=== PATIENT | female | born 1995 | race African-American/Black ===

== ENCOUNTER 2016-10-26 08:57 | Emergency (ER) | payer MEDICAID, OTHER ==
[~2016-10-26] VITALS: Ht 165.1 cm; Wt 60.0 kg
[2016-10-26 08:58] VITALS: BP 108/58; PULSE 70; RESP 20; TEMP 97.8; O2SAT 100
[2016-10-26] MEDS ORDERED: SODIUM CHLOR 0.9% 1000 ML INJ 1,000 ML IV ONE (09:26)
[2016-10-26] MEDS ORDERED: SODIUM CHLORIDE 0.9% FLUSH 5 ML FLUSH IVF PRN (09:30)
--- NOTE | 2016-10-26 09:42 | PD ---
HPI Chief Complaint: Injury Time Seen by Provider: 09:42 Travel History International Travel<30 days: No Contact w/Intl Traveler<30days: No Traveled to known affect area: No History of Present Illness HPI 20-year-old Afro-[place]ian female presents the emergency department with complaints of a syncopal event yesterday, where she fell and injured her left foot which she is complaining of pain along the dorsal foot. She also has pain in the right dorsal wrist with bump present. Patient states that she had syncopal events frequently. She has a history of anemia which has not been checked in many months. She denies fever, chills, headache, head injury, neck pain, or other constitutional complaints. Patient denies . Patient is currently not on her period. She has no significant medical history other than history of MRSA. She has no known drug allergies. PFSH Past Medical History Hx Anticoagulant Therapy: No Anxiety: Yes Depression: Yes (hx ) Cancer: No Cardiovascular Problems: No Chemotherapy: No Cerebrovascular Accident: No Diabetes: No Diminished Hearing: No Endocrine: No Gastrointestinal Disorders: No GERD: Yes Genitourinary: No Headaches: No Heparin Induced Thrombocytopen: No Immune Disorder: No Implanted Vascular Access Dvce: No Musculoskeletal: No Neurologic: No Psychiatric: Yes (depression, suicidal attempt/ideation) Reproductive: No Respiratory: No Immunizations Current: Yes Seizures: No Sickle Cell Disease: No ?: Not LMP: 09/28/16 : 0 Para: 0 Past Surgical History Section: No Other Surgery: No Social History Alcohol Use: No Tobacco Use: No Substance Use: No Allergies-Medications (Allergen,Severity, Reaction): Coded Allergies: *MDRO Multi-Drug Resistant Organism (Verified Adverse Reaction, Unknown, ) ESBL+ Proteus in urine 04/2015. Reported Meds & Prescriptions Reported Meds & Active Scripts Active No Active Prescriptions or Reported Medications Review of Systems Except as stated in HPI: all other systems reviewed are Neg General / Constitutional: No: Fever Eyes: No: Visual changes HENT: No: Headaches Cardiovascular: No: Chest Pain or Discomfort Respiratory: No: Shortness of Breath Gastrointestinal: No: Abdominal Pain Genitourinary: No: Dysuria Musculoskeletal: No: Pain Skin: No Rash Neurologic: No: Weakness Psychiatric: No: Depression Endocrine: No: Polydipsia Hematologic/Lymphatic: No: Easy Bruising Physical Exam Narrative GENERAL: Patient is alert and oriented in no acute distress. SKIN: Warm and dry. Normal color. Normal turgor. HEAD: Atraumatic. Normocephalic. Nontender. EYES: Pupils equal and round. No scleral icterus. No injection or drainage. No significant pallor of the conjunctiva. ENT: No nasal bleeding or discharge. Mucous membranes pink and moist. Pharynx is normal. Airway is patent. TMs are clear. NECK: Trachea midline. No JVD. Supple and nontender. No palpable thyroid. CARDIOVASCULAR: Regular rate and rhythm. No murmurs gallops or rubs. RESPIRATORY: No accessory muscle use. Clear to auscultation. Breath sounds equal bilaterally. GASTROINTESTINAL: Abdomen soft, non-tender, nondistended. Hepatic and splenic margins not palpable. MUSCULOSKELETAL: Extremities without clubbing, cyanosis, or edema. No obvious deformities. Patient has no significant swelling of the left foot, but does have pain with palpation over the dorsal medial foot without obvious rapidness or deformity. Patient has what appears to be a ganglion cyst to the right dorsal wrist which is mobile and firm but not erythematous. She has good mounter sousaphones strength and range of motion of the wrist itself. NEUROLOGICAL: Awake and alert. No obvious cranial nerve deficits. Motor grossly within normal limits. Five out of 5 muscle strength in the arms and legs. Normal speech. PSYCHIATRIC: Appropriate mood and affect; insight and judgment normal. Data Data Last Documented VS Vital Signs Date Time Temp Pulse Resp B/P Pulse Ox O2 Delivery O2 Flow Rate FiO2 10/26/16 08:58 97.8 70 20 108/58 100 Room Air Orders Electrocardiogram (10/26/16 09:26) Ed Urine Pregnancytest Poc (10/26/16 09:26) Complete Blood Count With Diff (10/26/16 09:26) Comprehensive Metabolic Panel (10/26/16 09:26) Magnesium (Mg) (10/26/16:26) Urinalysis - C+S If Indicated (10/26/16:26) Ecg Monitoring (10/26/16:26) Iv Access Insert/Monitor (10/26/16 09:26) Oximetry (10/26/16 09:26) Sodium Chloride 0.9% Flush (Ns Flush) (10/26/16 09:30) Sodium Chlor 0.9% 1000 Ml Inj (Ns 1000 M (10/26/16 09:26) Foot, Complete ([id number]) (10/26/16 09:26) Labs Laboratory Tests Test 10/26/16 10/26/16 09:30 09:50 Urine Color YELLOW Urine Turbidity HAZY Urine pH 6.0 Urine Specific [place] 1.031 Urine Protein TRACE mg/dL Urine Glucose (UA) NEG mg/dL Urine Ketones NEG mg/dL Urine Occult Blood NEG Urine Nitrite NEG Urine Bilirubin NEG Urine Urobilinogen 4.0 MG/DL Urine Leukocyte Esterase NEG Urine RBC 1 /hpf Urine WBC 3 /hpf Urine Squamous Epithelial 16 /hpf Cells Urine Bacteria OCC /hpf Urine Mucus MOD /lpf Microscopic Urinalysis Comment CULT NOT INDICATED White Blood Count 3.5 TH/MM3 Red Blood Count 4.54 MIL/MM3 Hemoglobin 9.5 GM/DL Hematocrit 30.0 % Mean Corpuscular Volume 66.0 FL Mean Corpuscular Hemoglobin 20.8 PG Mean Corpuscular Hemoglobin 31.6 % Concent Red Cell Distribution Width 16.5 % Platelet Count 200 TH/MM3 Mean Platelet Volume 9.7 FL Neutrophils (%) (Auto) 54.2 % Lymphocytes (%) (Auto) 35.5 % Monocytes (%) (Auto) 6.2 % Eosinophils (%) (Auto) 3.5 % Basophils (%) (Auto) 0.6 % Neutrophils # (Auto) 1.9 TH/MM3 Lymphocytes # (Auto) 1.2 TH/MM3 Monocytes # (Auto) 0.2 TH/MM3 Eosinophils # (Auto) 0.1 TH/MM3 Basophils # (Auto) 0.0 TH/MM3 CBC Comment AUTO DIFF Differential Comment AUTO DIFF CONFIRMED Platelet Estimate NORMAL Platelet Morphology Comment NORMAL Ovalocytes 1+ Keratocytes OCC Sodium Level 142 MEQ/L Potassium Level 4.0 MEQ/L Chloride Level 111 MEQ/L Carbon Dioxide Level 26.7 MEQ/L Anion Gap 4 MEQ/L Blood Urea Nitrogen 9 MG/DL Creatinine 0.65 MG/DL Estimat Glomerular Filtration 142 ML/MIN Rate Random Glucose 83 MG/DL Calcium Level 8.6 MG/DL Magnesium Level 1.8 MG/DL Total Bilirubin 0.5 MG/DL Aspartate Amino Transf 12 U/L (AST/SGOT) Alanine Aminotransferase 17 U/L (ALT/SGPT) Alkaline Phosphatase 40 U/L Total Protein 7.3 GM/DL Albumin 3.7 GM/DL MDM Medical Decision Making Medical Screen Exam Complete: Yes Emergency Medical Condition: Yes Differential Diagnosis Syncope. Left foot sprain. Left foot contusion. Left foot fracture. Right wrist ganglion cyst. Narrative Course Patient is medically stable at time of exam. Labs for syncope are ordered including CBC, CMP, magnesium, urinalysis, urine . EKG is ordered. X-ray of the left foot is ordered. Patient is given 1000 mL of normal saline bolus. X-ray of the foot is unremarkable per radiologist. EKG is unremarkable. This is reviewed with Dr. Valdivia. Patient states she is taking iron, and is supposed to be taking it 3 times a day but hasn't been. Patient does not take vitamin B12. I feel the patient probably had a vasovagal syncopal episode yesterday due to her chronic microcytic anemia which is actually improved compared to previous labs. The patient is encouraged to take her iron as prescribed 3 times daily. I recommend that patient take vitamin B12 as well to help with absorption. Patient should follow with her primary care physician to ensure improvement in the next several weeks. The patient is felt to have a ganglion cyst on her right wrist which he should follow-up with a hand surgeon as discussed. Patient is to take Tylenol or ibuprofen for her left foot discomfort. Diagnosis Primary Impression: Syncope Qualified Code: R55 - Syncope, unspecified syncope type Additional Impressions: Sprain of left foot Qualified Code: S93.602A - Sprain of left foot, initial encounter Microcytic anemia Ganglion cyst of dorsum of right wrist Referrals: Yaritza Singleton MD Patient Instructions: Foot Sprain (ED), Ganglion Cysts (ED), General Instructions, Iron Deficiency Anemia (ED), Iron Rich Diet (DC) Med/Other Pt SpecificInfo: Prescription(s) given Scripts No Active Prescriptions or Reported Meds Disposition: 01 DISCHARGE HOME Condition: Stable Guillermo Ayala Oct 26, 2016 09:42
[2016-10-26 09:53] LABS: BACTERIA, URINE OCC /hpf; BLOOD, URINE NEG (NEG); COMMENT (UR) CULT NOT INDICATED; CULTURE IF INDICATED CULT NOT INDICATED; GLUCOSE,URINE NEG (NEG); KETONE, URINE NEG (NEG); MUCUS URINE MOD /lpf (OCC); NITRITE,URINE NEG (NEG); SQUAMOUS EPITHELIAL CELL URINE 16 /hpf (0-5); URINE COLOR YELLOW (YELLW/STRAW)
[2016-10-26 10:06] LABS: AUTOMATED NEUTROPHIL # 1.9 TH/MM3 (1.8-7.7); BASOPHIL % 0.6 % (0.0-2.0); EOSINOPHIL # 0.1 TH/MM3 (0-0.4); EOSINOPHIL % 3.5 % (0.0-4.0); HEMO FLAGS AUTO DIFF; LYMPH % 35.5 % (9.0-44.0); LYMPHOCYTE # 1.2 TH/MM3 (1.0-4.8); MEAN CORPUSCULAR HEMOGLOBIN 20.8 PG (27.0-34.0); MEAN CORPUSCULAR HGB CONC 31.6 % (32.0-36.0); MONO % 6.2 % (0.0-8.0); NEUT % 54.2 % (16.0-70.0); PLATELET COUNT 200 TH/MM3 (150-450); RED BLOOD COUNT 4.54 MIL/MM3 (4.00-5.30); RED CELL DISTRIBUTION WIDTH 16.5 % (11.6-17.2); WHITE BLOOD COUNT 3.5 TH/MM3 (4.0-11.0)
[2016-10-26 10:22] LABS: ALT (GPT) 17 U/L (9-42); ANION GAP 4 MEQ/L (5-15); AST (GOT) 12 U/L (16-38); BICARBONATE 26.7 MEQ/L (21.0-32.0); BLOOD UREA NITROGEN 9 MG/DL (7-18); CHLORIDE 111 MEQ/L (98-107); GLOMERULAR FILTRATION RATE 142 ML/MIN (>89); MAGNESIUM 1.8 MG/DL (1.5-2.5); SODIUM (NA) 142 MEQ/L (136-145)
[2016-10-26 10:24] LABS: ALKALINE PHOSPHATASE 40 U/L (45-117); TOTAL BILIRUBIN ADULT 0.5 MG/DL (0.2-1.0)
[2016-10-26 10:45] LABS: KERATOCYTES OCC (NORMAL); OVALOCYTES 1+ (NORMAL); PLATELET ESTIMATE SMEAR NORMAL (NORMAL); PLATELET MORPHOLOGY NORMAL (NORMAL); SCAN/DIFF AUTO DIFF CONFIRMED
[2016-10-26] MEDS ORDERED: IBUP-232 PO (10:59)
[2016-10-26] MEDS ORDERED: B12-1CHW CHEW (10:59)
--- NOTE | 2016-10-26 11:03 | RADRPT ---
EXAM DATE/TIME: 10/26/2016 09:50 [facility] COMPARISON: No previous studies available for comparison. INDICATIONS : Fell three days ago, pain anterior left foot, slight swelling at distal end of metatarsals MEDICAL HISTORY : None. SURGICAL HISTORY : None. ENCOUNTER: Initial ACUITY: 3 days PAIN SCORE: 7/10 LOCATION: Left foot FINDINGS: 3 views of the left foot. Bone alignment within normal limits. No evidence of fracture. Bone mineral ization within normal limits. No evidence of joint narrowing. CONCLUSION: No evidence of fracture. Luisito Tamayo MD on October 26, 2016 at 11:00 Board Certified Radiologist. This report was verified electronically.
--- NOTE | 2016-10-26 13:51 | EKG ---
Date Performed: 10/26/2016 Time Performed: 10:02:09 PTAGE: 20 years EKG: Sinus rhythm NORMAL ECG PREVIOUS TRACING : 08/08/2016 19.39 Since previous tracing, no significant change noted DOCTOR: Jeanine Wallis Interpretating Date/Time 10/26/2016 13:45:13
[2017-03-07] MEDS ORDERED: ERGO1CAP30 PO (09:32)
== END 2016-10-26 11:55 | disposition home or self-care (01) ==
LOC: NEPB 08:57
DX: R55 Syncope and collapse (principal); S93.602A Unspecified sprain of left foot, initial encounter; D50.9 Iron deficiency anemia, unspecified; M67.431 Ganglion, right wrist; Z86.2 Personal history of diseases of the blood and blood-forming organs and certain disorders involving the immune mechanism; Z86.59 Personal history of other mental and behavioral disorders; Z87.19 Personal history of other diseases of the digestive system; W19.XXXA Unspecified fall, initial encounter
CPT/HCPCS: 73630; 80053; 81001; 83735; 84703; 85025; 93005; 96360; 96361; 99284; J7030

== ENCOUNTER 2016-12-23 09:03 | Emergency (ER) | payer MEDICAID, OTHER ==
[~2016-12-23] VITALS: Ht 165.1 cm; Wt 65.0 kg
[~2016-12-23 09:03] MED LIST: B12-1CHW CHEW; IBUP-232 PO
[2016-12-23 09:05] VITALS: BP 107/51; PULSE 87; RESP 15; TEMP 97.8; O2SAT 98
--- NOTE | 2016-12-23 09:31 | PD ---
HPI Chief Complaint: Injury Time Seen by Provider: 09:27 Travel History International Travel<30 days: No Contact w/Intl Traveler<30days: No Traveled to known affect area: No History of Present Illness HPI Patient is a 21-year-old female presenting to emergency department for evaluation of left wrist pain. Patient states she fell twice last week and onto her outstretched hand. She states her wrist is sore, she denies any numbness or tingling. She denies any weakness in her wrist or hand. She has been utilizing a wrist brace with no relief of her symptoms. Patient has not taken anything to alleviate the pain. She reports her pain is an 8 out of 10. She also reports a ganglion cyst to her right anterior wrist. PFSH Past Medical History Hx Anticoagulant Therapy: No Anxiety: Yes Depression: Yes (hx ) Cancer: No Cardiovascular Problems: No Chemotherapy: No Cerebrovascular Accident: No Diabetes: No Diminished Hearing: No Endocrine: No Gastrointestinal Disorders: No GERD: Yes Genitourinary: No Headaches: No Heparin Induced Thrombocytopen: No Immune Disorder: No Implanted Vascular Access Dvce: No Musculoskeletal: No Neurologic: No Psychiatric: Yes (depression, suicidal attempt/ideation) Reproductive: No Respiratory: No Immunizations Current: Yes Seizures: No Sickle Cell Disease: No ?: Not : 0 Para: 0 Past Surgical History Section: No Other Surgery: No Social History Alcohol Use: No Tobacco Use: No Substance Use: No Allergies-Medications (Allergen,Severity, Reaction): Coded Allergies: *MDRO Multi-Drug Resistant Organism (Verified Adverse Reaction, Unknown, ) ESBL+ Proteus in urine 04/2015. Reported Meds & Prescriptions Reported Meds & Active Scripts Active Reported Iron (Ferrous Sulfate) 325 Mg Tab 325 Mg PO DAILY Take Review of Systems Except as stated in HPI: all other systems reviewed are Neg Musculoskeletal: Positive: Myalgias, Arthralgias Physical Exam Narrative GENERAL: Well-nourished, well-developed patient. SKIN: Focused skin assessment warm/dry. HEAD: Normocephalic. EYES: No scleral icterus. No injection or drainage. NECK: Supple, trachea midline. No JVD or lymphadenopathy. CARDIOVASCULAR: Regular rate and rhythm without murmurs, gallops, or rubs. RESPIRATORY: Breath sounds equal bilaterally. No accessory muscle use. GASTROINTESTINAL: Abdomen soft, non-tender, nondistended. MUSCULOSKELETAL: No cyanosis, or edema. No obvious deformities noted. Full range of motion in left wrist and hand. Patient is neurovascularly intact. Ganglion cyst noted to the right anterior wrist BACK: Nontender without obvious deformity. No CVA tenderness. Data Data Last Documented VS Vital Signs Date Time Temp Pulse Resp B/P Pulse Ox O2 Delivery O2 Flow Rate FiO2 12/23/16 09:05 97.8 87 15 107/51 98 Orders Wrist, Complete ([id number]) (12/23/16 ) [facility] Medical Decision Making Medical Screen Exam Complete: Yes Emergency Medical Condition: Yes Interpretation(s) Vital Signs Date Time Temp Pulse Resp B/P Pulse Ox O2 Delivery O2 Flow Rate FiO2 12/23/16 09:05 97.8 87 15 107/51 98 Differential Diagnosis Sprain versus strain versus fracture versus other Narrative Course Patient is a 21-year-old female presenting to emergency department for evaluation of left wrist pain after falling onto an outstretched hand last week and. Patient is neurovascularly intact, so obvious deformities noted. Also presents with complaint of a ganglion cyst to her right wrist. Patient was advised she would need to follow-up with a hand surgeon for evaluation of the ganglion cyst. Imaging ordered pending of the left wrist. Imaging of the left wrist negative for acute fracture area bones are normal alignment. Patient is encouraged to alternate heat and ice the affected area, take medications as directed, wrist race for support. She is encouraged to follow-up with her primary doctor return to emergency department for any new or worsening symptoms. Patient verbalized understanding of instructions. Patient is stable for discharge Diagnosis Primary Impression: Wrist pain Qualified Code: M25.532 - Left wrist pain Referrals: Primary Care Physician Patient Instructions: General Instructions, Wrist Injury (ED) Additional Instructions: Follow-up with her primary doctor Alternate heat and ice to the affected area, continue range of motion exercises , wrist splint for support Return to emergency department for any new or worsening symptoms Take medications as directed Med/Other Pt SpecificInfo: Prescription(s) given Scripts Ibuprofen 800 Mg [id number] Mg PO Q6HR PRN (PAIN) #40 TAB Ref 0 Prov:Marybel Isidro 12/23/16 Disposition: 01 DISCHARGE HOME Condition: Stable Marybel Isidro Dec 23, 2016 09:31
[2016-12-23] MEDS ORDERED: FERR1TAB36 PO (09:39)
--- NOTE | 2016-12-23 09:49 | RADRPT ---
EXAM DATE/TIME: 12/23/2016 09:45 [facility] COMPARISON: No previous studies available for comparison. INDICATIONS : Fall Saturday, pain entire wrist radiating into metacarpals. MEDICAL HISTORY : None. SURGICAL HISTORY : None. ENCOUNTER: Initial ACUITY: 3 days PAIN SCORE: 10/10 LOCATION: Left wrist. FINDINGS: Three view examination of the left wrist demonstrates no soft tissue swelling, dislocation, or fractu re. The carpal bones are in normal alignment. The joint spaces are maintained. Bony mineralization is normal. CONCLUSION: Normal examination for a patient of this age. Edgardo Tristan MD FACR on December 23, 2016 at 9:46 Board Certified Radiologist. This report was verified electronically.
[2016-12-23] MEDS ORDERED: IBUP800T23 PO (09:53)
[2017-03-07] MEDS ORDERED: ERGO1CAP30 PO (09:32)
== END 2016-12-23 10:01 | disposition home or self-care (01) ==
LOC: NETRI 09:03
DX: M25.532 Pain in left wrist (principal); W19.XXXA Unspecified fall, initial encounter; Y93.9 Activity, unspecified; Y92.9 Unspecified place or not applicable; Y99.9 Unspecified external cause status
CPT/HCPCS: 73110; 99283

== ENCOUNTER 2017-01-20 18:29 | Emergency (ER) | payer MEDICAID, OTHER ==
[~2017-01-20] VITALS: Ht 165.1 cm; Wt 75.0 kg
[~2017-01-20 18:29] MED LIST changes: -B12-1CHW CHEW; +FERR1TAB36 PO; -IBUP-232 PO; +IBUP800T23 PO
[2017-01-20 18:30] VITALS: BP 115/56; PULSE 87; RESP 17; TEMP 99; O2SAT 98
--- NOTE | 2017-01-20 18:35 | PD ---
Physical Exam Date Seen by Provider: Jan 20, 2017 Time Seen by Provider: 18:33 Narrative 21 y/o female with complaints of possible allergic reaction to Ramen Noodles Last night. Patient has had swelling and sores to her lips. No Sore throat or tongue swelling. No wheezing or SOB. V/S Stable Awaiting bed placement. (Guillermo Ayala) Data Data Last Documented VS Vital Signs Date Time Temp Pulse Resp B/P Pulse Ox O2 Delivery O2 Flow Rate FiO2 01/20/17 18:30 99.0 87 17 115/56 98 (Quinten Grossman MD) [facility] Medical Record Reviewed: Yes Supervised Visit with ELLEN: Yes (Guillermo Ayala) Supervised Visit with ELLEN: Yes (Quinten Grossman MD) Diagnosis Primary Impression: Oral herpes Additional Instruction: Need to follow for the health department for testing for other STDs. No kissing no sharing drinks until the lesions are completely healed. Med/Other Pt SpecificInfo: Prescription(s) given (Quinten Grossman MD) Scripts Acyclovir 800 Mg [id number] Mg PO 5 TIMES A DAY 7 Days Ref 0 Prov:Quinten Grossman MD 01/20/17 Disposition: 01 DISCHARGE HOME Condition: Stable Guillermo Ayala Jan 20, 2017 18:35 Quinten Grossman MD Jan 20, 2017 18:47
[2017-01-20] MEDS ORDERED: ACYC800T PO (18:47)
--- NOTE | 2017-01-20 19:46 | PD ---
HPI Chief Complaint: Allergic/Adverse Reaction Time Seen by Provider: 18:35 Travel History International Travel<30 days: No Contact w/Intl Traveler<30days: No Traveled to known affect area: No History of Present Illness HPI Patient is a 21-year-old female who presents emergency department after having noodles she eats she thought she started having an allergic reaction. She states her lips and swollen and she noticed some lesions on the inside of her lip. She states this never happened to her before and she has no allergies. She denies any fevers denies any shortness of breath denies any sensation that her throat closing off. PFSH Past Medical History Hx Anticoagulant Therapy: No Anemia: Yes Weight (Kg): 3 Anxiety: Yes Depression: Yes (hx ) Cancer: No Cardiovascular Problems: No Chemotherapy: No Cerebrovascular Accident: No Diabetes: No Diminished Hearing: No Endocrine: No Gastrointestinal Disorders: No GERD: Yes Genitourinary: No Headaches: No Heparin Induced Thrombocytopen: No Immune Disorder: No Implanted Vascular Access Dvce: No Musculoskeletal: No Neurologic: No Psychiatric: Yes (depression, suicidal attempt/ideation) Reproductive: No Respiratory: No Immunizations Current: Yes Seizures: No Sickle Cell Disease: No Tetanus Vaccination: > 5 Years Influenza Vaccination: No ?: Not LMP: 01/20/17 : 0 Para: 0 Miscarriage: 0 : 0 Past Surgical History Surgical History: No Previous Surgery Section: No Other Surgery: No Social History Alcohol Use: No Tobacco Use: No Substance Use: No Allergies-Medications (Allergen,Severity, Reaction): Coded Allergies: *MDRO Multi-Drug Resistant Organism (Verified Adverse Reaction, Unknown, ) ESBL+ Proteus in urine 04/2015. Reported Meds & Prescriptions Reported Meds & Active Scripts Active Acyclovir 800 Mg Tab 800 Mg PO 5 TIMES A DAY 7 Days Review of Systems Except as stated in HPI: all other systems reviewed are Neg Physical Exam Narrative GENERAL: Well-nourished, well-developed patient. SKIN: Focused skin assessment warm/dry. HEAD: Normocephalic. EYES: No scleral icterus. No injection or drainage. ENT: There are several vesicular lesions over a bed of erythema on the mucosal surface of her upper lip. These are consistent with herpes infection. Airway is widely patent, there is no soft tissue edema of her face. NECK: Supple, trachea midline. No JVD or lymphadenopathy. CARDIOVASCULAR: Regular rate and rhythm without murmurs, gallops, or rubs. RESPIRATORY: Breath sounds equal bilaterally. No accessory muscle use. GASTROINTESTINAL: Abdomen soft, non-tender, nondistended. MUSCULOSKELETAL: No cyanosis, or edema. BACK: Nontender without obvious deformity. No CVA tenderness. Data Data Last Documented VS Vital Signs Date Time Temp Pulse Resp B/P Pulse Ox O2 Delivery O2 Flow Rate FiO2 01/20/17 18:30 99.0 87 17 115/56 98 MDM Medical Decision Making Medical Screen Exam Complete: Yes Emergency Medical Condition: Yes Differential Diagnosis Oral herpes, allergic reaction unlikely, anaphylaxis excluded clinically. Narrative Course Patient was roomed in the emergency department, she appears well in no apparent distress. Discussed with her the diagnosis and recommended had trial of acyclovir and follow-up with the health department for further testing for possible other STDs. She is stable for discharge at this time. Diagnosis Primary Impression: Oral herpes Additional Instructions: Need to follow for the health department for testing for other STDs. No kissing no sharing drinks until the lesions are completely healed. Scripts Acyclovir 800 Mg [id number] Mg PO 5 TIMES A DAY 7 Days Ref 0 Prov:Quinten Grossman MD 01/20/17 Disposition: 01 DISCHARGE HOME Condition: Stable Quinten Grossman MD Jan 20, 2017 19:46
[2017-03-07] MEDS ORDERED: ERGO1CAP30 PO (09:32)
== END 2017-01-20 20:12 | disposition home or self-care (01) ==
LOC: NEPD 18:29
DX: B00.2 Herpesviral gingivostomatitis and pharyngotonsillitis (principal); D64.9 Anemia, unspecified
CPT/HCPCS: 99283

== ENCOUNTER 2017-03-24 15:08 | Emergency (ER) | payer OTHER ==
[~2017-03-24] VITALS: Ht 165.1 cm; Wt 60.0 kg
[~2017-03-24 15:08] MED LIST changes: +ERGO1CAP30 PO; -FERR1TAB36 PO; -IBUP800T23 PO
[2017-03-24 15:11] VITALS: BP 118/58; PULSE 87; RESP 20; TEMP 98.6; O2SAT 100
[2017-03-24] MEDS ORDERED: FLUT50SP EACH NARE (16:22)
[2017-03-24] MEDS ORDERED: AUGM875T3 PO (16:22)
[2017-03-24] MEDS ORDERED: IBUP800T23 PO (16:22)
--- NOTE | 2017-03-24 16:22 | PD ---
HPI Chief Complaint: Headache Time Seen by Provider: 16:22 Travel History International Travel<30 days: No Contact w/Intl Traveler<30days: No Traveled to known affect area: No History of Present Illness HPI Patient is a 21-year-old female presenting to the emergency department with 1 month of frontal headaches. Patient states that that are worse when laying down and in the morning. She reports nasal congestion, heavy, tired eyes. She states she feels dizzy occasionally but has had no cough, nausea, vomiting, photophobia, weakness. Patient reports a history of anemia, anxiety, depression , hypotension. She reports compliance with iron therapy twice daily. She has no other complaints at this time. PFSH Past Medical History Hx Anticoagulant Therapy: No Anemia: Yes Anxiety: Yes Depression: Yes (hx ) Cancer: No Cardiovascular Problems: No Chemotherapy: No Cerebrovascular Accident: No Diabetes: No Diminished Hearing: No Endocrine: No Gastrointestinal Disorders: No GERD: Yes Genitourinary: No Headaches: No Heparin Induced Thrombocytopen: No Immune Disorder: No Implanted Vascular Access Dvce: No Musculoskeletal: No Neurologic: No Reproductive: No Respiratory: No Immunizations Current: Yes Seizures: No Sickle Cell Disease: No ?: Not LMP: FEBRUARY 2017 : 0 Para: 0 Miscarriage: 0 : 0 Past Surgical History Surgical History: No Previous Surgery Section: No Other Surgery: No Social History Alcohol Use: No Tobacco Use: No Substance Use: No Allergies-Medications (Allergen,Severity, Reaction): Coded Allergies: No Known Allergies (Unverified , 02/21/17) Reported Meds & Prescriptions Reported Meds & Active Scripts Active Ibuprofen 800 Mg Tab 800 Mg PO Q6HR PRN Fluticasone Nasal Jones 50 Mcg/Act Naspr 100 Mcg EACH NARE BID 50 mcg/spray Augmentin (Amoxicillin-Clavulanate) 875-125 Mg Tab 1 Tab PO BID 10 Days Ergocalciferol 50,000 Unit Cap 50,000 Units PO Q7D Review of Systems Except as stated in HPI: all other systems reviewed are Neg Eyes: Positive: Blurred Vision (chronic in nature) HENT: Positive: Headaches, Rhinitis, Congestion, No: Lightheadedness, Neck Stiffness, Neck Pain Cardiovascular: No: Chest Pain or Discomfort Respiratory: No: Shortness of Breath Gastrointestinal: No: Nausea, Abdominal Pain Musculoskeletal: No: Myalgias Neurologic: Positive: Dizziness, Headache (frontal), No: Weakness Physical Exam Narrative GENERAL: Well-developed, well-nourished, alert female. Resting comfortably in no acute distress. SKIN: Focused skin assessment warm/dry. HEAD: Atraumatic. Normocephalic. EYES: Pupils equal and round. No scleral icterus. No injection or drainage. Extraocular movements are intact. ENT: No nasal bleeding or discharge. Mucous membranes pink and moist. Nasal turbinates appear swollen, clear drainage noted. Airway is patent. NECK: Trachea midline. No JVD. CARDIOVASCULAR: Regular rate and rhythm. No murmur appreciated. RESPIRATORY: No accessory muscle use. Clear to auscultation. Breath sounds equal bilaterally. GASTROINTESTINAL: Abdomen soft, non-tender, nondistended. Hepatic and splenic margins not palpable. MUSCULOSKELETAL: No obvious deformities. No clubbing. No cyanosis. No edema. NEUROLOGICAL: Awake and alert. No obvious cranial nerve deficits. Motor grossly within normal limits. Normal speech. PSYCHIATRIC: Appropriate mood and affect; insight and judgment normal. Data Data Last Documented VS Vital Signs Date Time Temp Pulse Resp B/P Pulse Ox O2 Delivery O2 Flow Rate FiO2 03/24/17 16:28 Room Air 03/24/17 15:11 98.6 87 20 118/58 100 [facility] Medical Decision Making Medical Screen Exam Complete: Yes Emergency Medical Condition: Yes Medical Record Reviewed: Yes Interpretation(s) Vital Signs Date Time Temp Pulse Resp B/P Pulse Ox O2 Delivery O2 Flow Rate FiO2 03/24/17 16:28 Room Air 03/24/17 15:11 98.6 87 20 118/58 100 Room Air Differential Diagnosis Migraine versus cluster headache versus tension type headache versus sinusitis versus other Narrative Course Patient is a 21-year-old female presenting with 1 month of headaches that are frontal in nature, worse when laying down and upon awakening in the morning. Patient was seen and evaluated by her primary care provider 2 weeks ago for the same issue, she was instructed take acetaminophen or ibuprofen for the pain. She was also advised to have her eyes checked she has not done. Physical exam is most consistent with sinusitis. Patient was encouraged to obtain over-the- counter Sudafed or similar age and use as directed. She was given prescription for antibiotics as well as fluticasone nasal spray. She is encouraged follow- up with her primary care provider this week. She is encouraged to return to emergency department for any new or worsening symptoms. Patient verbalized understanding of instructions. Patient is stable for discharge. Diagnosis Primary Impression: Acute sinusitis Qualified Code: J01.90 - Acute sinusitis, recurrence not specified, unspecified location Referrals: Primary Care Physician Patient Instructions: General Instructions, Sinusitis (ED) Additional Instructions: Follow-up with her primary doctor Obtain [id number] Sudafed or similar medication and use as directed and as needed Take medications as directed Return to emergency department for any new or worsening symptoms Med/Other Pt SpecificInfo: Prescription(s) given Scripts Ibuprofen 800 Mg [id number] Mg PO Q6HR PRN (PAIN) #40 TAB Ref 0 Prov:Marybel Isidro 03/24/17 Fluticasone Nasal Jones 50 Mcg/Act [id number] Mcg EACH NARE BID #1 BOTTLE Ref 0 50 mcg/spray Prov:Marybel Isidro 03/24/17 Amoxicillin-Clavulanate (Augmentin)875-125 Mg Tab1 Tab PO BID 10 Days Ref 0 Prov:Marybel Isidro 03/24/17 Disposition: 01 DISCHARGE HOME Condition: Stable Marybel Isidro Mar 24, 2017 16:22
[2017-03-27] MEDS ORDERED: FERR200T PO (09:49)
== END 2017-03-24 16:55 | disposition home or self-care (01) ==
LOC: NEPD 15:08
DX: J01.90 Acute sinusitis, unspecified (principal)
CPT/HCPCS: 99284

== ENCOUNTER 2017-05-29 16:14 | Emergency (ER) | payer OTHER ==
[~2017-05-29] VITALS: Ht 165.1 cm; Wt 71.0 kg
[~2017-05-29 16:14] MED LIST changes: +AMOX500T PO; +CLAR10CA3 PO; +CLAR500T PO; +COLA100C PO; -ERGO1CAP30 PO; +FERR200T PO; +FLUT50SP EACH NARE; +IBUP800T23 PO; +PANT40TA3 PO; +SACC1CAP3 PO
[2017-05-29 16:15] VITALS: BP 116/58; PULSE 85; RESP 20; TEMP 99; O2SAT 97
[2017-05-29] MEDS ORDERED: ALUMINUM/MAGNESIUM/SIMETH 30 ML CUP PO ONE (17:45)
[2017-05-29] MEDS ORDERED: FAMOTIDINE 20 MG/2 ML VIAL IV PUSH ONE (17:45)
[2017-05-29] MEDS ORDERED: LIDOCAINE VISCOUS 2% SOLN 15 ML UDC PO ONE (17:45)
--- NOTE | 2017-05-29 17:47 | PD ---
HPI Chief Complaint: Abdominal Pain Time Seen by Provider: 17:35 Travel History International Travel<30 days: No Contact w/Intl Traveler<30days: No Traveled to known affect area: No History of Present Illness HPI This patient was examined in the presence of female nurse. 21-year-old female who reports a history of GERD presents for evaluation of "heartburn." She reports that yesterday evening she ate B [employer] and 2 hours later she developed a burning sensation in the epigastrium/left upper quadrant that radiates into the upper chest. She tried using some Tums but the symptoms persisted which prompted evaluation. She reports that she has had a similar pain intermittently for the past year but this time is worse than usual. She reports that she was diagnosed with GERD last year and prescribed some type of medication but she never got it filled because she does not feel that it was necessary. She denies shortness of breath, cough or congestion, flank pain, vaginal bleeding or discharge, nausea or vomiting, dysuria. Her last menstrual period was April 09 but she does not that she spotted lightly about a month ago. She has no other complaints at this time. PFSH Past Medical History Hx Anticoagulant Therapy: No Anemia: Yes Anxiety: Yes Depression: Yes (hx ) Cancer: No Cardiovascular Problems: No Chemotherapy: No Cerebrovascular Accident: No Diabetes: No Diminished Hearing: No Endocrine: No Gastrointestinal Disorders: No GERD: Yes Genitourinary: No Headaches: No Heparin Induced Thrombocytopen: No Immune Disorder: No Implanted Vascular Access Dvce: No Musculoskeletal: No Neurologic: No Reproductive: No Respiratory: No Immunizations Current: Yes Seizures: No Sickle Cell Disease: No ?: Unknown LMP: 04/09/17 : 0 Para: 0 Miscarriage: 0 : 0 Past Surgical History Section: No Other Surgery: No Social History Alcohol Use: No Tobacco Use: No Substance Use: No Allergies-Medications (Allergen,Severity, Reaction): Coded Allergies: No Known Allergies (Unverified , 05/13/17) Reported Meds & Prescriptions Reported Meds & Active Scripts Active Pantoprazole (Pantoprazole Sodium) 40 Mg Tab 40 Mg PO BID Review of Systems Except as stated in HPI: all other systems reviewed are Neg Physical Exam Narrative GENERAL: Well-developed well-nourished female in no acute distress SKIN: Warm and dry. HEAD: Atraumatic. Normocephalic. EYES: Pupils equal and round. No scleral icterus. No injection or drainage. ENT: No nasal bleeding or discharge. Mucous membranes pink and moist. NECK: Trachea midline. No JVD. CARDIOVASCULAR: Regular rate and rhythm. No murmur appreciated. RESPIRATORY: No accessory muscle use. Clear to auscultation. Breath sounds equal bilaterally. GASTROINTESTINAL: Abdomen soft, mild left upper quadrant/epigastric tenderness without guarding. Negative Marquez's. Mild suprapubic tenderness. MUSCULOSKELETAL: No obvious deformities. No edema. No CVA tenderness. NEUROLOGICAL: Awake and alert. No obvious cranial nerve deficits. Motor grossly within normal limits. Normal speech. PSYCHIATRIC: Appropriate mood and affect; insight and judgment normal. Data Data Last Documented VS Vital Signs Date Time Temp Pulse Resp B/P (MAP) Pulse Ox O2 Delivery O2 Flow Rate FiO2 05/29/17 16:15 99.0 85 20 116/58 (77) 97 Room Air Orders Orders Complete Blood Count With Diff (05/29/17 17:42) Comprehensive Metabolic Panel (05/29/17 17:42) Lipase (05/29/17 17:42) Urinalysis - C+S If Indicated (05/29/17 17:42) Iv Access Insert/Monitor (05/29/17 17:42) Electrocardiogram (05/29/17 17:42) Chest, Single Ap (05/29/17 17:42) Famotidine Inj (Pepcid Inj) (05/29/17 17:45) Al-Mag Hy-Si 40-40-4 Mg/Ml Liq (Mag-Al P (05/29/17 17:45) Lidocaine 2% Viscous (Xylocaine 2% Visco (05/29/17 17:45) Ed Urine Pregnancytest Poc (05/29/17 17:42) Labs Laboratory Tests Test 05/29/17 17:50 05/29/17 18:20 White Blood Count 6.0 TH/MM3 Red Blood Count 4.51 MIL/MM3 Hemoglobin 9.4 GM/DL Hematocrit 30.9 % Mean Corpuscular Volume 68.4 FL Mean Corpuscular Hemoglobin 20.9 PG Mean Corpuscular Hemoglobin Concent 30.5 % Red Cell Distribution Width 15.4 % Platelet Count 226 TH/MM3 Mean Platelet Volume 9.6 FL Neutrophils (%) (Auto) 58.7 % Lymphocytes (%) (Auto) 30.8 % Monocytes (%) (Auto) 8.3 % Eosinophils (%) (Auto) 1.5 % Basophils (%) (Auto) 0.7 % Neutrophils # (Auto) 3.5 TH/MM3 Lymphocytes # (Auto) 1.8 TH/MM3 Monocytes # (Auto) 0.5 TH/MM3 Eosinophils # (Auto) 0.1 TH/MM3 Basophils # (Auto) 0.0 TH/MM3 CBC Comment DIFF FINAL Differential Comment Blood Urea Nitrogen 11 MG/DL Creatinine 0.81 MG/DL Random Glucose 78 MG/DL Total Protein 8.4 GM/DL Albumin 3.7 GM/DL Calcium Level 8.9 MG/DL Alkaline Phosphatase 50 U/L Aspartate Amino Transf (AST/SGOT) 27 U/L Alanine Aminotransferase (ALT/SGPT) 18 U/L Total Bilirubin 0.4 MG/DL Sodium Level 135 MEQ/L Potassium Level 5.4 MEQ/L Chloride Level 107 MEQ/L Carbon Dioxide Level 23.9 MEQ/L Anion Gap 4 MEQ/L Estimat Glomerular Filtration Rate 109 ML/MIN Lipase 119 U/L Urine Color YELLOW Urine Turbidity HAZY Urine pH 6.5 Urine Specific [place] 1.027 Urine Protein NEG mg/dL Urine Glucose (UA) NEG mg/dL Urine Ketones NEG mg/dL Urine Occult Blood NEG Urine Nitrite NEG Urine Bilirubin NEG Urine Urobilinogen 2.0 MG/DL Urine Leukocyte Esterase TRACE Urine RBC LESS THAN 1 /hpf Urine WBC 2 /hpf Urine Squamous Epithelial Cells 4 /hpf Urine Bacteria RARE /hpf Urine Mucus FEW /lpf Microscopic Urinalysis Comment CULT NOT INDICATED MDM Medical Decision Making Medical Screen Exam Complete: Yes Emergency Medical Condition: Yes Medical Record Reviewed: Yes Differential Diagnosis Gastritis, peptic ulcer disease, gastroesophageal reflux, esophagitis, pancreatitis, biliary colic, perforation Narrative Course 21-year-old female with history of GERD presents with one-day history of worsening burning sensation in the epigastrium/left upper quadrant that radiates into the chest, unrelieved with Tums. On examination she has mild tenderness to palpation in the epigastrium and left upper quadrant without guarding, generally benign abdominal examination. Her symptoms are certainly suspicious for gastritis/peptic ulcer disease. Plan is for basic lab work, EKG , chest x-ray. The patient will be given GI cocktail, Pepcid. Her lab work reveals chronic anemia. Potassium is 5.4 but the specimen is hemolyzed and there is no clinical reason to suspect hyperkalemia in this otherwise healthy 21-year-old female. She felt immediately improvement of her symptoms after the administration of GI cocktail. She'll be discharged with prescription for Protonix, recommend follow-up with primary care physician, consider outpatient endoscopy if symptoms worsen. Diagnosis Primary Impression: Gastritis Qualified Codes: K29.70 - Gastritis, unspecified, without bleeding Additional Instructions: Medication as prescribed. Follow-up with primary care physician. Return for any emergent medical conditions. Med/Other Pt SpecificInfo: Prescription(s) given Scripts Pantoprazole (Pantoprazole) 40 Mg Tab 40 MG PO BID for Reflux, #30 TAB 0 Refills Prov: Yissel Palacios MD 05/29/17 Disposition: 01 DISCHARGE HOME Condition: Stable Orville Almendarez May 29, 2017 17:47
--- NOTE | 2017-05-29 18:16 | RADRPT ---
EXAM DATE/TIME: 05/29/2017 17:44 [facility] COMPARISON: CHEST PA & LAT, March 22, 2016, 18:51. CHEST SINGLE AP, August 08, 2016, 20:01. INDICATIONS : Patient complains of chest pain and upper abdomen pain. MEDICAL HISTORY : None. SURGICAL HISTORY : None. ENCOUNTER: Initial ACUITY: 1 day PAIN SCORE: 10/10 LOCATION: chest FINDINGS: A single view of the chest demonstrates the lungs to be symmetrically aerated without evidence of mas s, infiltrate or effusion. The cardiomediastinal contours are unremarkable. Osseous structures are intact. CONCLUSION: No acute disease. Andre Carbajal MD on May 29, 2017 at 18:14 Board Certified Radiologist. This report was verified electronically.
[2017-05-29 18:42] LABS: AUTOMATED NEUTROPHIL # 3.5 TH/MM3 (1.8-7.7); BASOPHIL % 0.7 % (0.0-2.0); EOSINOPHIL # 0.1 TH/MM3 (0-0.4); EOSINOPHIL % 1.5 % (0.0-4.0); HEMATOCRIT 30.9 % (35.0-46.0); HEMO FLAGS DIFF FINAL; LYMPH % 30.8 % (9.0-44.0); LYMPHOCYTE # 1.8 TH/MM3 (1.0-4.8); MEAN CELL VOLUME 68.4 FL (80.0-100.0); MEAN CORPUSCULAR HEMOGLOBIN 20.9 PG (27.0-34.0); MEAN CORPUSCULAR HGB CONC 30.5 % (32.0-36.0); MONO % 8.3 % (0.0-8.0); NEUT % 58.7 % (16.0-70.0); PLATELET COUNT 226 TH/MM3 (150-450); RED BLOOD COUNT 4.51 MIL/MM3 (4.00-5.30); RED CELL DISTRIBUTION WIDTH 15.4 % (11.6-17.2)
[2017-05-29 18:43] LABS: BACTERIA, URINE RARE /hpf; BLOOD, URINE NEG (NEG); COMMENT (UR) CULT NOT INDICATED; CULTURE IF INDICATED CULT NOT INDICATED; GLUCOSE,URINE NEG (NEG); KETONE, URINE NEG (NEG); MUCUS URINE FEW /lpf (OCC); NITRITE,URINE NEG (NEG); PH, URINE 6.5 (5.0-8.5); SQUAMOUS EPITHELIAL CELL URINE 4 /hpf (0-5); URINE COLOR YELLOW (YELLW/STRAW)
[2017-05-29 19:02] LABS: AST (GOT) 27 U/L (16-38); BICARBONATE 23.9 MEQ/L (21.0-32.0); BLOOD UREA NITROGEN 11 MG/DL (7-18); GLOMERULAR FILTRATION RATE 109 ML/MIN (>89)
[2017-05-29 19:54] LABS: ALKALINE PHOSPHATASE 50 U/L (45-117); ALT (GPT) 18 U/L (9-42); ANION GAP 4 MEQ/L (5-15); CHLORIDE 107 MEQ/L (98-107); SODIUM (NA) 135 MEQ/L (136-145); TOTAL BILIRUBIN ADULT 0.4 MG/DL (0.2-1.0)
[2017-05-29 19:58] LABS: POTASSIUM 5.4 MEQ/L (3.5-5.1)
[2017-05-29] MEDS ORDERED: PANT40TA3 PO (20:01)
--- NOTE | 2017-05-30 12:52 | EKG ---
Date Performed: 05/29/2017 Time Performed: 19:00:33 PTAGE: 21 years EKG: Sinus rhythm WITH OCCASIONAL SUPRAVENTRICULAR PREMATURE COMPLEXES BORDERLINE ECG PREVIOUS TRACING : 10/26/2016 10.02 DOCTOR: Luís De La O Interpretating Date/Time 05/30/2017 12:47:27
== END 2017-05-29 20:15 | disposition home or self-care (01) ==
LOC: NEPD 16:14
DX: K29.70 Gastritis, unspecified, without bleeding (principal); K21.9 Gastro-esophageal reflux disease without esophagitis; D64.9 Anemia, unspecified; F41.9 Anxiety disorder, unspecified; F32.9 Major depressive disorder, single episode, unspecified
CPT/HCPCS: 71010; 80053; 81001; 83690; 84703; 85025; 93005; 96374

== ENCOUNTER 2017-06-14 16:33 | Emergency (ER) | payer OTHER ==
[~2017-06-14] VITALS: Ht 165.1 cm; Wt 73.5 kg
[~2017-06-14 16:33] MED LIST changes: -AMOX500T PO; -CLAR10CA3 PO; -CLAR500T PO; -COLA100C PO; -FERR200T PO; -FLUT50SP EACH NARE; -IBUP800T23 PO; -SACC1CAP3 PO
[2017-06-14 16:35] VITALS: BP 118/57; PULSE 94; RESP 13; TEMP 98.5; O2SAT 98
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
[2017-06-14] MEDS ORDERED: FERR325C PO (17:52)
[2017-06-14] MEDS ORDERED: IBUP-1129 PO (18:34)
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
[2017-06-18] MEDS ORDERED: TRAM50 PO (22:44)
== END 2017-06-14 18:56 | disposition home or self-care (01) ==
LOC: NEPD 16:33
DX: M54.2 Cervicalgia (principal); V49.59XA Passenger injured in collision with other motor vehicles in traffic accident, initial encounter; Y92.481 Parking lot as the place of occurrence of the external cause
CPT/HCPCS: 99282

== ENCOUNTER 2017-06-18 18:54 | Emergency (ER) | payer OTHER ==
[~2017-06-18] VITALS: Ht 165.1 cm; Wt 75.0 kg
[~2017-06-18 18:54] MED LIST changes: +FERR325C PO; +IBUP-1129 PO; -PANT40TA3 PO
[2017-06-18 18:55] VITALS: BP 106/70; PULSE 86; RESP 16; TEMP 98.5; O2SAT 98
--- NOTE | 2017-06-18 20:50 | PD ---
HPI Chief Complaint: Abdominal Pain Time Seen by Provider: 20:41 Travel History International Travel<30 days: No Contact w/Intl Traveler<30days: No Traveled to known affect area: No History of Present Illness HPI patient states her last period was mid march this year, doesn't know if , states that she has taken multiple otc tests which are negative...states c/o lower abdominal pain for last 2 weeks, pressure, non rad, 4/10, no uti sx, no vag bleeding, no vag discharge, no fever. all: nkda pcp: john delacruz denies pshx pmhx sig for anxiety PFSH Past Medical History Hx Anticoagulant Therapy: No Anemia: Yes Anxiety: Yes Depression: Yes (hx ) Cancer: No Cardiovascular Problems: No Chemotherapy: No Cerebrovascular Accident: No Diabetes: No Diminished Hearing: No Endocrine: No Gastrointestinal Disorders: No GERD: Yes Genitourinary: No Headaches: No Heparin Induced Thrombocytopen: No Immune Disorder: No Implanted Vascular Access Dvce: No Musculoskeletal: No Neurologic: No Psychiatric: Yes (depression, suicidal attempt/ideation) Reproductive: No Respiratory: No Immunizations Current: Yes Seizures: No Sickle Cell Disease: No ?: Unknown LMP: 7-18-17 : 0 Para: 0 Miscarriage: 0 : 0 Past Surgical History Section: No Other Surgery: No Social History Alcohol Use: No Tobacco Use: No Substance Use: No Allergies-Medications (Allergen,Severity, Reaction): Coded Allergies: No Known Allergies (Unverified , 05/13/17) Reported Meds & Prescriptions Reported Meds & Active Scripts Active Ultram (Tramadol HCl) 50 Mg Tab 50 Mg PO Q6H PRN Motrin Ib (Ibuprofen) 200 Mg Tablet 400 Mg PO Q6HR PRN Reported Iron (Ferrous Sulfate) 325 Mg Cap 325 Mg PO DAILY Review of Systems Except as stated in HPI: all other systems reviewed are Neg Gastrointestinal: Positive: Abdominal Pain (suprapubic) Physical Exam Narrative GENERAL: SKIN: Warm and dry. HEAD: Atraumatic. Normocephalic. EYES: Pupils equal and round. No scleral icterus. No injection or drainage. ENT: No nasal bleeding or discharge. Mucous membranes pink and moist. NECK: Trachea midline. No JVD. CARDIOVASCULAR: Regular rate and rhythm. RESPIRATORY: No accessory muscle use. Clear to auscultation. Breath sounds equal bilaterally. GASTROINTESTINAL: Abdomen soft, non-tender, nondistended. MUSCULOSKELETAL: Extremities without clubbing, cyanosis, or edema. No obvious deformities. NEUROLOGICAL: Awake and alert. No obvious cranial nerve deficits. Motor grossly within normal limits. Five out of 5 muscle strength in the arms and legs. Normal speech. PSYCHIATRIC: Appropriate mood and affect; insight and judgment normal. Data Data Last Documented VS Vital Signs Date Time Temp Pulse Resp B/P (MAP) Pulse Ox O2 Delivery O2 Flow Rate FiO2 06/19/17 01:59 06/18/17 18:55 98.5 86 16 98 Orders Orders Urinalysis - C+S If Indicated (06/18/17 20:41) Ed Urine Pregnancytest Poc (06/18/17 20:41) Beta Hcg (Quant/Titer) (06/18/17 20:50) Complete Blood Count With Diff (06/18/17 20:50) Comprehensive Metabolic Panel (06/18/17 20:50) Lipase (06/18/17 20:50) Ct Abd/Pel W/O Iv Contrast (06/18/17 20:50) Iv Access Insert/Monitor (06/18/17 20:50) Ecg Monitoring (06/18/17 20:50) Oximetry (06/18/17 20:50) NPO (06/18/17 20:50) Sodium Chloride 0.9% Flush (Ns Flush) (06/18/17 21:00) Labs Laboratory Tests Test 06/18/17 21:16 06/18/17 21:30 Urine Color YELLOW Urine Turbidity HAZY Urine pH 7.0 Urine Specific [place] 1.030 Urine Protein TRACE mg/dL Urine Glucose (UA) NEG mg/dL Urine Ketones NEG mg/dL Urine Occult Blood NEG Urine Nitrite NEG Urine Bilirubin NEG Urine Urobilinogen 4.0 MG/DL Urine Leukocyte Esterase NEG Urine RBC 1 /hpf Urine WBC 4 /hpf Urine Squamous Epithelial Cells 8 /hpf Urine Mucus MANY /lpf Microscopic Urinalysis Comment CULT NOT INDICATED White Blood Count 6.4 TH/MM3 Red Blood Count 4.83 MIL/MM3 Hemoglobin 9.7 GM/DL Hematocrit 32.5 % Mean Corpuscular Volume 67.4 FL Mean Corpuscular Hemoglobin 20.1 PG Mean Corpuscular Hemoglobin Concent 29.8 % Red Cell Distribution Width 15.4 % Platelet Count 272 TH/MM3 Mean Platelet Volume 9.7 FL Neutrophils (%) (Auto) 57.7 % Lymphocytes (%) (Auto) 33.9 % Monocytes (%) (Auto) 6.4 % Eosinophils (%) (Auto) 1.5 % Basophils (%) (Auto) 0.5 % Neutrophils # (Auto) 3.7 TH/MM3 Lymphocytes # (Auto) 2.2 TH/MM3 Monocytes # (Auto) 0.4 TH/MM3 Eosinophils # (Auto) 0.1 TH/MM3 Basophils # (Auto) 0.0 TH/MM3 CBC Comment DIFF FINAL Differential Comment Blood Urea Nitrogen 10 MG/DL Creatinine 0.65 MG/DL Random Glucose 87 MG/DL Total Protein 8.7 GM/DL Albumin 4.3 GM/DL Calcium Level 9.4 MG/DL Alkaline Phosphatase 60 U/L Aspartate Amino Transf (AST/SGOT) 16 U/L Alanine Aminotransferase (ALT/SGPT) 19 U/L Total Bilirubin 0.3 MG/DL Sodium Level 139 MEQ/L Potassium Level 3.9 MEQ/L Chloride Level 105 MEQ/L Carbon Dioxide Level 25.0 MEQ/L Anion Gap 9 MEQ/L Estimat Glomerular Filtration Rate 141 ML/MIN Lipase 119 U/L Human Chorionic Gonadotropin, Quant LESS THAN 1 MIU/ML MDM Medical Decision Making Medical Screen Exam Complete: Yes Emergency Medical Condition: Yes Medical Record Reviewed: Yes Differential Diagnosis uti v pregn related v ectopic preg v colitis v pancreatitis Narrative Course NEG , NO E/O PANCREATITIS OR COLITIS PER CT, HOWEVER DID DISCOVER E/O OVARIAN CYST AND MESENTERIC ADENITIS. PATIENT IS STABLE AND AWARE OF FINDINGS WILL D/C HOME Diagnosis Primary Impression: MESENTERIC ADENITIS Additional Impression: INCIDENTAL RIGHT OVARIAN CYST Referrals: [facility] FOR FURTHER CARE Patient Instructions: General Instructions, Mesenteric Adenitis (ED), Ovarian Cyst (DC) Scripts Tramadol (Ultram) 50 Mg Tab 50 MG PO Q6H Y for PAIN, #20 TAB 0 Refills Prov: Attila Montiel MD 06/18/17 Disposition: 01 DISCHARGE HOME Condition: Stable Attila Montiel MD Jun 18, 2017 20:50
[2017-06-18] MEDS ORDERED: SODIUM CHLORIDE 0.9% FLUSH 10 ML FLUSH IV FLUSH PRN (21:00)
[2017-06-18 21:30] LABS: BLOOD, URINE NEG (NEG); COMMENT (UR) CULT NOT INDICATED; CULTURE IF INDICATED CULT NOT INDICATED; GLUCOSE,URINE NEG (NEG); KETONE, URINE NEG (NEG); MUCUS URINE MANY /lpf (OCC); NITRITE,URINE NEG (NEG); SQUAMOUS EPITHELIAL CELL URINE 8 /hpf (0-5); URINE COLOR YELLOW (YELLW/STRAW)
[2017-06-18 21:58] LABS: AUTOMATED NEUTROPHIL # 3.7 TH/MM3 (1.8-7.7); BASOPHIL % 0.5 % (0.0-2.0); EOSINOPHIL # 0.1 TH/MM3 (0-0.4); EOSINOPHIL % 1.5 % (0.0-4.0); HEMATOCRIT 32.5 % (35.0-46.0); HEMO FLAGS DIFF FINAL; LYMPH % 33.9 % (9.0-44.0); LYMPHOCYTE # 2.2 TH/MM3 (1.0-4.8); MEAN CELL VOLUME 67.4 FL (80.0-100.0); MEAN CORPUSCULAR HEMOGLOBIN 20.1 PG (27.0-34.0); MONO % 6.4 % (0.0-8.0); NEUT % 57.7 % (16.0-70.0); PLATELET COUNT 272 TH/MM3 (150-450); RED BLOOD COUNT 4.83 MIL/MM3 (4.00-5.30); RED CELL DISTRIBUTION WIDTH 15.4 % (11.6-17.2); WHITE BLOOD COUNT 6.4 TH/MM3 (4.0-11.0)
--- NOTE | 2017-06-18 21:59 | RADRPT ---
EXAM DATE/TIME: 06/18/2017 21:40 [place] COMPARISON: No previous studies available for comparison. INDICATIONS : Lower abdominal pain for 2 weeks. ORAL CONTRAST: No oral contrast ingested. RADIATION DOSE: 7.72 CTDIvol (mGy) MEDICAL HISTORY : Hypertension. Gastroesophageal reflux disease. SURGICAL HISTORY : Hysterectomy. ENCOUNTER: Initial ACUITY: 2 weeks PAIN SCALE: 4/10 LOCATION: lower quadrant abdomen TECHNIQUE: Volumetric scanning of the abdomen and pelvis was performed. Using automated exposure control and ad justment of the mA and/or kV according to patient size, radiation dose was kept as low as reasonably achievable to obtain optimal diagnostic quality images. DICOM format image data is available electro nically for review and comparison. FINDINGS: LOWER LUNGS: The visualized lower lungs are clear. LIVER: Homogeneous density without lesion. There is no dilation of the biliary tree. No calcified [place] es. SPLEEN: Normal size without lesion. PANCREAS: Within normal limits. KIDNEYS: Normal in size and shape. There is no mass, stone, or hydronephrosis. ADRENAL GLANDS: Within normal limits. VASCULAR: There is no aortic aneurysm. BOWEL/MESENTERY: The stomach, small bowel, and colon demonstrate no acute abnormality. There is no free intraperitone al air or fluid. The appendix is normal. Several mesenteric lymph nodes measuring up to 1 cm in great est short axis dimension are seen in the right lower quadrant. ABDOMINAL WALL: Within normal limits. RETROPERITONEUM: There is no lymphadenopathy. BLADDER: No wall thickening or mass. REPRODUCTIVE: There is a 16mm simple appearing cyst of the right ovary. No free fluid. INGUINAL: There is no lymphadenopathy or hernia. MUSCULOSKELETAL: Within normal limits for patient age. CONCLUSION: 1. Upper limits of normal to slightly enlarged right lower quadrant lymph nodes. Mesenteric adenitis would be in the differential. No obstruction or inflammatory changes are seen of the gastrointestinal tract. The appendix is normal. 2. Small, simple appearing cyst of the right ovary. No free fluid. Andre Jefferson MD on June 18, 2017 at 21:54 Board Certified Radiologist. This report was verified electronically.
[2017-06-18 22:10] LABS: MEAN CORPUSCULAR HGB CONC 29.8 % (32.0-36.0)
[2017-06-18 22:11] LABS: ANION GAP 9 MEQ/L (5-15); AST (GOT) 16 U/L (16-38); BLOOD UREA NITROGEN 10 MG/DL (7-18); CHLORIDE 105 MEQ/L (98-107); GLOMERULAR FILTRATION RATE 141 ML/MIN (>89); POTASSIUM 3.9 MEQ/L (3.5-5.1); SODIUM (NA) 139 MEQ/L (136-145)
[2017-06-18 22:12] LABS: ALT (GPT) 19 U/L (9-42)
[2017-06-18 22:16] LABS: ALKALINE PHOSPHATASE 60 U/L (45-117); BETA HCG QUANT LESS THAN 1 MIU/ML (0-5); TOTAL BILIRUBIN ADULT 0.3 MG/DL (0.2-1.0)
[2017-06-18] MEDS ORDERED: ULTR50TA5 PO (22:44)
== END 2017-06-19 01:58 | disposition home or self-care (01) ==
LOC: NEPC 18:54
DX: I88.0 Nonspecific mesenteric lymphadenitis (principal); N83.201 Unspecified ovarian cyst, right side
CPT/HCPCS: 74176; 80053; 81001; 83690; 84702; 84703; 85025

== ENCOUNTER 2018-02-11 11:33 | Emergency (ER) | payer SELFPAY ==
[~2018-02-11] VITALS: Ht 165.1 cm; Wt 73.0 kg
[~2018-02-11 11:33] MED LIST changes: -FERR325C PO; +FLUT50SP EACH NARE; +TRAM50 PO
[2018-02-11 12:05] VITALS: BP 105/67; PULSE 79; RESP 17; TEMP 98.9; O2SAT 100
[2018-02-11 13:26] LABS: AUTOMATED NEUTROPHIL # 3.1 TH/MM3 (1.8-7.7); BASOPHIL % 0.3 % (0.0-2.0); EOSINOPHIL # 0.1 TH/MM3 (0-0.4); HEMATOCRIT 31.7 % (35.0-46.0); HEMOGLOBIN 9.6 GM/DL (11.6-15.3); LYMPH % 32.5 % (9.0-44.0); LYMPHOCYTE # 1.7 TH/MM3 (1.0-4.8); MEAN CELL VOLUME 65.2 FL (80.0-100.0); MEAN CORPUSCULAR HEMOGLOBIN 19.9 PG (27.0-34.0); MEAN CORPUSCULAR HGB CONC 30.4 % (32.0-36.0); MEAN PLATELET VOLUME 9.3 FL (7.0-11.0); MONO % 7.3 % (0.0-8.0); MONOCYTE # 0.4 TH/MM3 (0-0.9); NEUT % 57.9 % (16.0-70.0); PLATELET COUNT 286 TH/MM3 (150-450); RED BLOOD COUNT 4.86 MIL/MM3 (4.00-5.30); RED CELL DISTRIBUTION WIDTH 18.1 % (11.6-17.2); WHITE BLOOD COUNT 5.4 TH/MM3 (4.0-11.0)
[2018-02-11 13:28] LABS: GLUCOSE,URINE NEG (NEG); URINE COLOR YELLOW (YELLW/STRAW)
[2018-02-11 13:29] LABS: BILIRUBIN, URINE NEGATIVE (NEG); BLOOD, URINE NEG (NEG); KETONE, URINE NEG (NEG); MUCUS URINE MANY /lpf (OCC); NITRITE,URINE NEG (NEG); URINE LEUKOCYTE ESTERASE TRACE (NEG)
[2018-02-11 13:30] LABS: SQUAMOUS EPITHELIAL CELL URINE 7 /hpf (0-5)
[2018-02-11 13:51] LABS: ALBUMIN 3.9 GM/DL (3.4-5.0); ALT (GPT) 16 U/L (10-53); AST (GOT) 13 U/L (15-37); BICARBONATE 24.6 MEQ/L (21.0-32.0); BLOOD UREA NITROGEN 10 MG/DL (7-18); CALCIUM 8.8 MG/DL (8.5-10.1); CHLORIDE 107 MEQ/L (98-107); CREATININE 0.72 MG/DL (0.50-1.00); GLOMERULAR FILTRATION RATE 124 ML/MIN (>89); GLUCOSE,RANDOM 91 MG/DL (74-106); SODIUM (NA) 140 MEQ/L (136-145)
[2018-02-11 13:53] LABS: ALKALINE PHOSPHATASE 57 U/L (45-117); TOTAL BILIRUBIN ADULT 0.5 MG/DL (0.2-1.0); TOTAL PROTEIN 8.3 GM/DL (6.4-8.2)
--- NOTE | 2018-02-11 14:04 | PD ---
HPI Chief Complaint: Abdominal Pain Time Seen by Provider: 13:12 Travel History International Travel<30 days: No Contact w/Intl Traveler<30days: No Traveled to known affect area: No History of Present Illness HPI 22-year-old female presents emergency department with one half weeks of abdominal crampiness. She denies fever, chills, nausea, or vomiting. She has decreased appetite however. Patient denies dysuria. She denies . Although she is not sure if she could be. Last menstrual period was 19 January. Patient states history of constipation. She states she is moving her bowels but less than normal. Patient denies vaginal discharge. PFSH Past Medical History Hx Anticoagulant Therapy: No Anemia: Yes Weight (Kg): 3 Anxiety: Yes Depression: Yes (hx ) Cancer: No Cardiovascular Problems: No Chemotherapy: No Cerebrovascular Accident: No Diabetes: No Diminished Hearing: No Endocrine: No Gastrointestinal Disorders: No GERD: Yes Genitourinary: No Headaches: No Heparin Induced Thrombocytopen: No Immune Disorder: No Implanted Vascular Access Dvce: No Musculoskeletal: No Neurologic: No Psychiatric: Yes (depression, suicidal attempt/ideation) Reproductive: No Respiratory: No Immunizations Current: Yes Seizures: No Sickle Cell Disease: No ?: Not : 0 Para: 0 Miscarriage: 0 : 0 Past Surgical History Section: No Other Surgery: No Social History Alcohol Use: No Tobacco Use: No Substance Use: No Allergies-Medications (Allergen,Severity, Reaction): Coded Allergies: No Known Allergies (Verified Allergy, Unknown, 10/16/17) Reported Meds & Prescriptions Reported Meds & Active Scripts Active Fluticasone Nasal [place] 50 Mcg/Act Naspr 50 Mcg EACH NARE BID 50 mcg/spray Ultram (Tramadol HCl) 50 Mg Tab 50 Mg PO Q6H PRN Motrin Ib (Ibuprofen) 200 Mg Tablet 400 Mg PO Q6HR PRN Physical Exam Narrative GENERAL: Patient appears in mild distress. SKIN: Warm and dry. Normal color. Normal turgor. No rash. HEAD: Atraumatic. Normocephalic. EYES: Pupils equal and round. No scleral icterus. No injection or drainage. ENT: No nasal bleeding or discharge. Mucous membranes pink and moist. NECK: Trachea midline. Supple and nontender. CARDIOVASCULAR: Regular rate and rhythm. RESPIRATORY: No accessory muscle use. Clear to auscultation. Breath sounds equal bilaterally. GASTROINTESTINAL: Abdomen soft, mildly nonspecifically tender in the lower abdomen, nondistended. No point tenderness or rebound. No masses. No CVA tenderness. Hepatic and splenic margins not palpable. MUSCULOSKELETAL: Extremities without clubbing, cyanosis, or edema. No obvious deformities. NEUROLOGICAL: Awake and alert. No obvious cranial nerve deficits. Motor grossly within normal limits. Five out of 5 muscle strength in the arms and legs. Normal speech. PSYCHIATRIC: Appropriate mood and affect; insight and judgment normal. Data Data Last Documented VS Vital Signs Date Time Temp Pulse Resp B/P (MAP) Pulse Ox O2 Delivery O2 Flow Rate FiO2 02/11/18 12:05 98.9 79 17 105/67 (80) 100 Orders Orders Complete Blood Count With Diff (02/11/18 12:07) Comprehensive Metabolic Panel (02/11/18 12:07) Urinalysis - C+S If Indicated (02/11/18 12:07) Ed Urine Pregnancytest Poc (02/11/18 12:07) Abdomen, Flat & Upright (02/11/18 ) Labs Laboratory Tests Test 02/11/18 12:15 02/11/18 13:05 Urine Color YELLOW Urine Turbidity HAZY Urine pH 5.0 Urine Specific [place] 1.029 Urine Protein NEG mg/dL Urine Glucose (UA) NEG mg/dL Urine Ketones NEG mg/dL Urine Occult Blood NEG Urine Nitrite NEG Urine Bilirubin NEGATIVE Urine Urobilinogen 2.0 MG/DL Urine Leukocyte Esterase TRACE Urine RBC LESS THAN 1.0 /hpf Urine WBC 5 /hpf Urine Squamous Epithelial Cells 7 /hpf Urine Mucus MANY /lpf Microscopic Urinalysis Comment CULT NOT INDICATED White Blood Count 5.4 TH/MM3 Red Blood Count 4.86 MIL/MM3 Hemoglobin 9.6 GM/DL Hematocrit 31.7 % Mean Corpuscular Volume 65.2 FL Mean Corpuscular Hemoglobin 19.9 PG Mean Corpuscular Hemoglobin Concent 30.4 % Red Cell Distribution Width 18.1 % Platelet Count 286 TH/MM3 Mean Platelet Volume 9.3 FL Neutrophils (%) (Auto) 57.9 % Lymphocytes (%) (Auto) 32.5 % Monocytes (%) (Auto) 7.3 % Eosinophils (%) (Auto) 2.0 % Basophils (%) (Auto) 0.3 % Neutrophils # (Auto) 3.1 TH/MM3 Lymphocytes # (Auto) 1.7 TH/MM3 Monocytes # (Auto) 0.4 TH/MM3 Eosinophils # (Auto) 0.1 TH/MM3 Basophils # (Auto) 0.0 TH/MM3 CBC Comment DIFF FINAL Differential Comment Blood Urea Nitrogen 10 MG/DL Creatinine 0.72 MG/DL Random Glucose 91 MG/DL Total Protein 8.3 GM/DL Albumin 3.9 GM/DL Calcium Level 8.8 MG/DL Alkaline Phosphatase 57 U/L Aspartate Amino Transf (AST/SGOT) 13 U/L Alanine Aminotransferase (ALT/SGPT) 16 U/L Total Bilirubin 0.5 MG/DL Sodium Level 140 MEQ/L Potassium Level 3.5 MEQ/L Chloride Level 107 MEQ/L Carbon Dioxide Level 24.6 MEQ/L Anion Gap 8 MEQ/L Estimat Glomerular Filtration Rate 124 ML/MIN MDM Medical Decision Making Medical Screen Exam Complete: Yes Emergency Medical Condition: Yes Differential Diagnosis Abdominal pain. Constipation. [place]. . UTI. Narrative Course Patient is medically stable time exam per Abdominal exam is fairly unremarkable. Urinalysis is unremarkable. CBC shows hemoglobin 9.6 and hematocrit of 31.7 which is typical for patient with microcytic anemia.. Chemistries are unremarkable. KUB and upright abdominal x-rays ordered. X-ray shows: FINDINGS: Supine and upright views of the abdomen were performed. The abdominal bowel gas pattern is normal. No air-fluid levels are seen. There is a moderate amount of stool in the colon. No abnormal masses, calcifications, or organomegaly is seen. The visualized lower lungs are clear. No evidence of free intraperitoneal gas. The osseous structures are unremarkable. Patient is felt stable for discharge with a diagnosis of constipation. Patient is given a prescription for MiraLAX which she should use daily. Patient can take Tylenol and ibuprofen as needed. Patient should follow with primary care physician as needed. Diagnosis Primary Impression: Abdominal pain Qualified Codes: R10.30 - Lower abdominal pain, unspecified Additional Impression: Constipation Qualified Codes: K59.00 - Constipation, unspecified Referrals: Primary Care Physician Patient Instructions: Abdominal Pain (ED), Constipation (ED), General Instructions Additional Instructions: Urinalysis is unremarkable. CBC shows hemoglobin 9.6 and hematocrit of 31.7 which is typical for patient with microcytic anemia.. Chemistries are unremarkable. KUB and upright abdominal x-rays ordered. X-ray shows: FINDINGS: Supine and upright views of the abdomen were performed. The abdominal bowel gas pattern is normal. No air-fluid levels are seen. There is a moderate amount of stool in the colon. No abnormal masses, calcifications, or organomegaly is seen. The visualized lower lungs are clear. No evidence of free intraperitoneal gas. The osseous structures are unremarkable. Patient is felt stable for discharge with a diagnosis of constipation. Patient is given a prescription for MiraLAX which she should use daily. Patient can take Tylenol and ibuprofen as needed. Patient should follow with primary care physician as needed. Med/Other Pt SpecificInfo: Prescription(s) given Disposition: DISCHARGE HOME Condition: Stable Guillermo Ayala February 11, 2018 14:04
--- NOTE | 2018-02-11 14:40 | RADRPT ---
EXAM DATE: 02/11/2018 2:36 PM EDT AGE/SEX: 22 years / Female INDICATIONS: Abdominal and pelvic pain, no known injury. CLINICAL DATA: This is the patient's initial encounter. Patient reports that signs and symptoms have been present for 2 weeks and indicates a pain score of 7/10. MEDICAL/SURGICAL HISTORY: None. None. COMPARISON: No prior [facility] exams available for comparison. FINDINGS: Supine and upright views of the abdomen were performed. The abdominal bowel gas pattern is normal. No air-fluid levels are seen. There is a moderate amount of stool in the colon. No abnormal masses, carol cifications, or organomegaly is seen. The visualized lower lungs are clear. No evidence of free intra peritoneal gas. The osseous structures are unremarkable. CONCLUSION: Moderate amount of stool in the colon. Benign appearing abdomen. Electronically signed by: Damian Mcnair MD 02/11/2018 2:39 PM EDT
[2018-02-11] MEDS ORDERED: MIRA3350 PO (15:19)
== END 2018-02-11 15:55 | disposition home or self-care (01) ==
LOC: NEPD 11:33
DX: R10.30 Lower abdominal pain, unspecified (principal); K59.00 Constipation, unspecified
CPT/HCPCS: 74019; 80053; 81001; 84703; 85025; 99283

== ENCOUNTER 2018-03-10 15:28 | Emergency (ER) | payer SELFPAY ==
[~2018-03-10] VITALS: Ht 165.1 cm; Wt 70.0 kg
[~2018-03-10 15:28] MED LIST changes: +MIRA3350 PO
[2018-03-10 15:30] VITALS: BP 114/56; PULSE 78; RESP 16; TEMP 98; O2SAT 100
--- NOTE | 2018-03-10 16:05 | PD ---
HPI Chief Complaint: Chest Pain Time Seen by Provider: 15:50 Travel History International Travel<30 days: No Contact w/Intl Traveler<30days: No Traveled to known affect area: No History of Present Illness HPI Patient presents to the emergency department complaining of chest pain, abdominal pain, and nausea. Chest pain started at 9 PM last night, diffuse, "feels like somebody sitting on my chest," constant, aggravated by breathing, no alleviating factors. Abdominal pain 1 week, nonradiating, intermittent, hours in duration, no vaginal discharge or vaginal bleeding. Last menstrual period was the first part of January. When asked that she could be the response was "probably so." She denies fever, chills, cough, no sick contacts, sore throat, lower extremity edema, recent travel, dysuria, or vaginal discharge. Does report nausea and one episode of emesis which was food on last week and shortness of breath with exertion. PFSH Past Medical History Hx Anticoagulant Therapy: No Anemia: Yes Anxiety: Yes Depression: Yes (hx ) Cancer: No Cardiovascular Problems: No Chemotherapy: No Cerebrovascular Accident: No Diabetes: No Diminished Hearing: No Endocrine: No Gastrointestinal Disorders: No GERD: Yes Genitourinary: No Headaches: No Heparin Induced Thrombocytopen: No Immune Disorder: No Implanted Vascular Access Dvce: No Musculoskeletal: No Neurologic: No Psychiatric: Yes (depression, suicidal attempt/ideation) Reproductive: No Respiratory: No Immunizations Current: Yes Seizures: No Sickle Cell Disease: No ?: Unknown LMP: UNKNOWN : 0 Para: 0 Miscarriage: 0 : 0 Past Surgical History Section: No Other Surgery: No Social History Alcohol Use: No Tobacco Use: No Substance Use: No Allergies-Medications (Allergen,Severity, Reaction): Coded Allergies: crab (Verified Allergy, Intermediate, Hives, 03/10/18) shrimp (Verified Allergy, Intermediate, Hives, 03/10/18) No Known Allergies (Verified Allergy, Unknown, 10/16/17) Uncoded Allergies: pinea (Allergy, Intermediate, Hives, 03/10/18) Reported Meds & Prescriptions Reported Meds & Active Scripts Active Miralax Powder (Polyethylene Glycol 3350 Powder) 17 Gm Powd 17 Gm PO DAILY Mix and dissolve one measuring cap-ful (17 grams) in water or juice. Fluticasone Nasal [place] 50 Mcg/Act Naspr 50 Mcg EACH NARE BID 50 mcg/spray Ultram (Tramadol HCl) 50 Mg Tab 50 Mg PO Q6H PRN Motrin Ib (Ibuprofen) 200 Mg Tablet 400 Mg PO Q6HR PRN Review of Systems Except as stated in HPI: all other systems reviewed are Neg Physical Exam Narrative GENERAL: No acute distress. SKIN: Focused skin assessment warm/dry. HEAD: Atraumatic. Normocephalic. EYES: Pupils equal and round. No scleral icterus. No injection or drainage. ENT: No nasal bleeding or discharge. Mucous membranes pink and moist. NECK: Trachea midline. No JVD. CARDIOVASCULAR: Regular rate and rhythm. No murmur appreciated. RESPIRATORY: No accessory muscle use. Clear to auscultation. Breath sounds equal bilaterally. GASTROINTESTINAL: Abdomen soft, non-tender, nondistended. Hepatic and splenic margins not palpable. MUSCULOSKELETAL: No obvious deformities. No clubbing. No cyanosis. No edema. NEUROLOGICAL: Awake and alert. No obvious cranial nerve deficits. Motor grossly within normal limits. Normal speech. PSYCHIATRIC: Appropriate mood and affect; insight and judgment normal. Data Data Last Documented VS Vital Signs Date Time Temp Pulse Resp B/P (MAP) Pulse Ox O2 Delivery O2 Flow Rate FiO2 03/10/18 17:04 109/59 (76) 03/10/18 15:30 98.0 78 16 100 Orders Orders Beta Hcg (Quant/Titer) (03/10/18 16:06) Complete Blood Count With Diff (03/10/18 16:06) Comprehensive Metabolic Panel (03/10/18 16:06) Prothrombin Time / Inr (Pt) (03/10/18 16:06) Act Partial Throm Time (Ptt) (03/10/18 16:06) Urinalysis - C+S If Indicated (03/10/18 16:06) Iv Access Insert/Monitor (03/10/18 16:06) Ecg Monitoring (03/10/18 16:06) Oximetry (03/10/18 16:06) Sodium Chlor 0.9% 1000 Ml Inj (Ns 1000 M (03/10/18 16:06) Sodium Chloride 0.9% Flush (Ns Flush) (03/10/18 16:15) Electrocardiogram (03/10/18 16:06) Chest, Single Ap (03/10/18 16:06) Ed Urine Pregnancytest Poc (03/10/18 16:06) Creatine Kinase (Cpk) (03/10/18 16:06) Ckmb (Isoenzyme) Profile (03/10/18 16:06) Troponin I (03/10/18 16:06) D-Dimer (03/10/18 16:06) Orthostatic Vital Signs (03/10/18 16:06) CKMB (03/10/18 16:18) CKMB% (03/10/18 16:18) Potassium, Serum (K) (03/10/18 17:26) Ct Abd/Pel W Iv Contrast(Rout) (03/10/18 17:46) Iohexol 350 Inj (Omnipaque 350 Inj) (03/10/18 18:30) Ckmb (Isoenzyme) Profile (03/10/18 19:12) Troponin I (03/10/18 19:12) Mandatory Outpatient Referral (03/10/18 19:28) Labs Laboratory Tests Test 03/10/18 16:18 03/10/18 17:55 03/10/18 19:20 White Blood Count 6.0 TH/MM3 Red Blood Count 4.54 MIL/MM3 Hemoglobin 9.1 GM/DL Hematocrit 29.8 % Mean Corpuscular Volume 65.5 FL Mean Corpuscular Hemoglobin 19.9 PG Mean Corpuscular Hemoglobin Concent 30.4 % Red Cell Distribution Width 18.4 % Platelet Count 267 TH/MM3 Mean Platelet Volume 10.3 FL Neutrophils (%) (Auto) 59.2 % Lymphocytes (%) (Auto) 31.2 % Monocytes (%) (Auto) 7.8 % Eosinophils (%) (Auto) 1.2 % Basophils (%) (Auto) 0.6 % Neutrophils # (Auto) 3.6 TH/MM3 Lymphocytes # (Auto) 1.9 TH/MM3 Monocytes # (Auto) 0.5 TH/MM3 Eosinophils # (Auto) 0.1 TH/MM3 Basophils # (Auto) 0.0 TH/MM3 CBC Comment DIFF FINAL Differential Comment Prothrombin Time 10.8 SEC Prothromb Time International Ratio 1.1 RATIO Activated Partial Thromboplast Time 23.8 SEC D-Dimer Quantitative (PE/DVT) 0.24 MG/L FEU Urine Color YELLOW Urine Turbidity HAZY Urine pH 7.0 Urine Specific [place] 1.026 Urine Protein NEG mg/dL Urine Glucose (UA) NEG mg/dL Urine Ketones NEG mg/dL Urine Occult Blood NEG Urine Nitrite NEG Urine Bilirubin NEG Urine Urobilinogen 4.0 OR GREATER mg/dL Urine Leukocyte Esterase NEG Urine RBC LESS THAN 1 /hpf Urine WBC 2 /hpf Urine Squamous Epithelial Cells 4 /hpf Urine Mucus MOD /lpf Microscopic Urinalysis Comment CULT NOT INDICATED Blood Urea Nitrogen 9 MG/DL Creatinine 0.83 MG/DL Random Glucose 84 MG/DL Total Protein 8.2 GM/DL Albumin 3.7 GM/DL Calcium Level 9.0 MG/DL Alkaline Phosphatase 54 U/L Aspartate Amino Transf (AST/SGOT) 46 U/L Alanine Aminotransferase (ALT/SGPT) 22 U/L Total Bilirubin 0.4 MG/DL Sodium Level 138 MEQ/L Potassium Level 5.7 MEQ/L 4.1 MEQ/L Chloride Level 110 MEQ/L Carbon Dioxide Level 20.7 MEQ/L Anion Gap 7 MEQ/L Estimat Glomerular Filtration Rate 105 ML/MIN Total Creatine Kinase 220 U/L Creatine Kinase MB LESS THAN 0.5 NG/ML Creatine Kinase MB % 0.2 % Troponin I LESS THAN 0.02 NG/ML Human Chorionic Gonadotropin, Quant LESS THAN 1 MIU/ML MDM Medical Decision Making Medical Screen Exam Complete: Yes Emergency Medical Condition: Yes Interpretation(s) ECG: Jon rhythm, rate 66, Q-wave in lead aVL, Labs: Decreased hemoglobin and hematocrit, UA-+ urobilinogen, chemistry- hemolyzed specimen, elevated potassium, AST, CK; d-dimer within normal limits, troponin within normal limits Last Impressions Abdomen/Pelvis CT 03/10/18 1896 Signed Impressions: CONCLUSION: 1. 5.9 cm left breast mass, stable to slightly increased in size from 2016. This could be further evaluated with mammography and ultrasound. 2. 2.5 cm right adnexal cyst. Small cyst left ovary. Appendix appears normal. Small amount of free fluid in the pelvis. Chest X-Ray 03/10/18 1606 Signed Impressions: CONCLUSION: 1. No acute cardiopulmonary disease. Differential Diagnosis , anemia, PE, musculoskeletal chest pain, Narrative Course Patient presents to the emergency department complaining of chest pain, abdominal pain and nausea. Patient is placed on internal controls specialist, IV access obtained, orthostats/EKG/chest x-ray/labs/IV fluids ordered. 1915: Repeat potassium within normal limits. She has a second set of cardiac enzymes are pending. She will be signed out to Dr. Anglin, the oncoming physician. Patient states that she knows that she has a mass in her left breast and has been increasing in size. Advised that she does not have insurance. Given information for breast navigator. Manditory referral for breast navigator placed in the computer. Repeat potassium within normal limits. Diagnosis Primary Impression: Atypical chest pain Additional Impression: Anemia Qualified Codes: D64.9 - Anemia, unspecified Janae Carcamo MD Mar 10, 2018 16:05
[2018-03-10] MEDS ORDERED: SODIUM CHLOR 0.9% 1000 ML INJ 1,000 ML IV SCH (16:06)
[2018-03-10] MEDS ORDERED: SODIUM CHLORIDE 0.9% FLUSH 10 ML FLUSH IV FLUSH PRN (16:15)
--- NOTE | 2018-03-10 16:38 | RADRPT ---
EXAM DATE: 03/10/2018 4:36 PM EDT AGE/SEX: 22 years / Female INDICATIONS: Chest pain and pressure since last evening, short of breath CLINICAL DATA: This is the patient's initial encounter. Patient reports that signs and symptoms have been present for 1 day and indicates a pain score of 10/10. MEDICAL/SURGICAL HISTORY: None. None. COMPARISON: [facility] [place], CHEST SINGLE AP, 05/29/2017. . FINDINGS: A single AP view of the chest demonstrates the lungs to be symmetrically aerated without evidence of mass, infiltrate or effusion. The cardiomediastinal contours are unremarkable. Osseous structures a re intact. CONCLUSION: 1. No acute cardiopulmonary disease. Electronically signed by: Moiz Kong MD 03/10/2018 4:37 PM EDT
[2018-03-10 16:42] LABS: AUTOMATED NEUTROPHIL # 3.6 TH/MM3 (1.8-7.7); BASOPHIL % 0.6 % (0.0-2.0); EOSINOPHIL # 0.1 TH/MM3 (0-0.4); EOSINOPHIL % 1.2 % (0.0-4.0); HEMATOCRIT 29.8 % (35.0-46.0); HEMOGLOBIN 9.1 GM/DL (11.6-15.3); LYMPH % 31.2 % (9.0-44.0); LYMPHOCYTE # 1.9 TH/MM3 (1.0-4.8); MEAN CELL VOLUME 65.5 FL (80.0-100.0); MEAN CORPUSCULAR HEMOGLOBIN 19.9 PG (27.0-34.0); MEAN CORPUSCULAR HGB CONC 30.4 % (32.0-36.0); MEAN PLATELET VOLUME 10.3 FL (7.0-11.0); MONO % 7.8 % (0.0-8.0); MONOCYTE # 0.5 TH/MM3 (0-0.9); NEUT % 59.2 % (16.0-70.0); PLATELET COUNT 267 TH/MM3 (150-450); RED BLOOD COUNT 4.54 MIL/MM3 (4.00-5.30); RED CELL DISTRIBUTION WIDTH 18.4 % (11.6-17.2)
[2018-03-10 16:47] LABS: BILIRUBIN, URINE NEG (NEG); BLOOD, URINE NEG (NEG); GLUCOSE,URINE NEG (NEG); KETONE, URINE NEG (NEG); MUCUS URINE MOD /lpf (OCC); NITRITE,URINE NEG (NEG); SQUAMOUS EPITHELIAL CELL URINE 4 /hpf (0-5); URINE COLOR YELLOW (YELLW/STRAW); URINE LEUKOCYTE ESTERASE NEG (NEG)
[2018-03-10 16:55] LABS: INTERNATIONAL NORMALIZED RATIO 1.1 RATIO; PROTHROMBIN TIME - PATIENT 10.8 SEC (9.8-11.6)
[2018-03-10 17:02] VITALS: BP_SYST 102; BP_SYST 109; BP_DIAS 58; BP_DIAS 59
[2018-03-10 17:03] LABS: D-DIMER 0.24 MG/L FEU (0.00-0.50)
[2018-03-10 17:04] VITALS: BP 109/59
[2018-03-10 17:11] LABS: ALT (GPT) 22 U/L (10-53)
[2018-03-10 17:17] LABS: ALBUMIN 3.7 GM/DL (3.4-5.0); ALKALINE PHOSPHATASE 54 U/L (45-117); BICARBONATE 20.7 MEQ/L (21.0-32.0); BLOOD UREA NITROGEN 9 MG/DL (7-18); CHLORIDE 110 MEQ/L (98-107); CREATININE 0.83 MG/DL (0.50-1.00); GLOMERULAR FILTRATION RATE 105 ML/MIN (>89); GLUCOSE,RANDOM 84 MG/DL (74-106); SODIUM (NA) 138 MEQ/L (136-145); TOTAL BILIRUBIN ADULT 0.4 MG/DL (0.2-1.0); TOTAL PROTEIN 8.2 GM/DL (6.4-8.2); TROPONIN I LESS THAN 0.02 NG/ML (0.02-0.05)
[2018-03-10 17:20] LABS: AST (GOT) 46 U/L (15-37)
[2018-03-10] MEDS ORDERED: IOHEXOL 350 MG/ML 10 ML VIAL (for RAD DIAG) IVCONTRAST ONE (18:30)
--- NOTE | 2018-03-10 18:59 | RADRPT ---
EXAM DATE: 03/10/2018 6:37 PM EDT AGE/SEX: 22 years / Female INDICATIONS: Periumbilical pain. CLINICAL DATA: This is the patient's initial encounter. Patient reports that signs and symptoms have been present for 1 day and indicates a pain score of 8/10. MEDICAL/SURGICAL HISTORY: Gastroesophageal reflux disease. None. ORAL CONTRAST: Prescribed oral contrast ingested. RADIATION DOSE: 6.97 CTDI (mGy) [place] [facility] [place]AST[place] 06/18/2017. . TECHNIQUE: Multiple contiguous axial images were obtained through the abdomen and pelvis following b olus infusion of 66 ml Omnipaque 350 (iohexol) nonionic water-soluble contrast as a single exam dos e. Prescribed oral contrast ingested. Using automated exposure control and adjustment of the mA and/ or kV according to patient size, radiation dose was kept as low as reasonably achievable to obtain op timal diagnostic quality images. DICOM format image data is available electronically for review and comparison. FINDINGS: There is a 4 x 5.9 cm left breast mass which is stable to slightly increased in size from a prior [facility] CT from May 2017. This should be further evaluated with mammography and ultrasound Lung bases are clear. No acute findings in the liver, spleen, adrenals, kidneys or pancreas. No free fluid or free air. No bowel obstruction. The appendix appears normal. There is a 2.5 cm right adnexal cystic lesion. Small cyst noted in the left ovary. There is a small amount of free fluid in the pelv is. CONCLUSION: 1. 5.9 cm left breast mass, stable to slightly increased in size from May 2017. This could be further evaluated with mammography and ultrasound. 2. 2.5 cm right adnexal cyst. Small cyst left ovary. Appendix appears normal. Small amount of free f luid in the pelvis. Electronically signed by: Melo Hall MD 03/10/2018 6:58 PM EDT
--- NOTE | 2018-03-10 19:41 | PD ---
Data Data Last Documented VS Vital Signs Date Time Temp Pulse Resp B/P (MAP) Pulse Ox O2 Delivery O2 Flow Rate FiO2 03/10/18 17:04 109/59 (76) 03/10/18 15:30 98.0 78 16 100 Orders Orders Beta Hcg (Quant/Titer) (03/10/18 16:06) Complete Blood Count With Diff (03/10/18 16:06) Comprehensive Metabolic Panel (03/10/18 16:06) Prothrombin Time / Inr (Pt) (03/10/18 16:06) Act Partial Throm Time (Ptt) (03/10/18 16:06) Urinalysis - C+S If Indicated (03/10/18 16:06) Iv Access Insert/Monitor (03/10/18 16:06) Ecg Monitoring (03/10/18 16:06) Oximetry (03/10/18 16:06) Sodium Chlor 0.9% 1000 Ml Inj (Ns 1000 M (03/10/18 16:06) Sodium Chloride 0.9% Flush (Ns Flush) (03/10/18 16:15) Electrocardiogram (03/10/18 16:06) Chest, Single Ap (03/10/18 16:06) Ed Urine Pregnancytest Poc (03/10/18 16:06) Creatine Kinase (Cpk) (03/10/18 16:06) Ckmb (Isoenzyme) Profile (03/10/18 16:06) Troponin I (03/10/18 16:06) D-Dimer (03/10/18 16:06) Orthostatic Vital Signs (03/10/18 16:06) CKMB (03/10/18 16:18) CKMB% (03/10/18 16:18) Potassium, Serum (K) (03/10/18 17:26) Ct Abd/Pel W Iv Contrast(Rout) (03/10/18 17:46) Iohexol 350 Inj (Omnipaque 350 Inj) (03/10/18 18:30) Ckmb (Isoenzyme) Profile (03/10/18 19:12) Troponin I (03/10/18 19:12) Mandatory Outpatient Referral (03/10/18 19:28) CKMB (03/10/18 19:20) CKMB% (03/10/18 19:20) Labs Laboratory Tests Test 03/10/18 16:18 03/10/18 17:55 03/10/18 19:20 White Blood Count 6.0 TH/MM3 Red Blood Count 4.54 MIL/MM3 Hemoglobin 9.1 GM/DL Hematocrit 29.8 % Mean Corpuscular Volume 65.5 FL Mean Corpuscular Hemoglobin 19.9 PG Mean Corpuscular Hemoglobin Concent 30.4 % Red Cell Distribution Width 18.4 % Platelet Count 267 TH/MM3 Mean Platelet Volume 10.3 FL Neutrophils (%) (Auto) 59.2 % Lymphocytes (%) (Auto) 31.2 % Monocytes (%) (Auto) 7.8 % Eosinophils (%) (Auto) 1.2 % Basophils (%) (Auto) 0.6 % Neutrophils # (Auto) 3.6 TH/MM3 Lymphocytes # (Auto) 1.9 TH/MM3 Monocytes # (Auto) 0.5 TH/MM3 Eosinophils # (Auto) 0.1 TH/MM3 Basophils # (Auto) 0.0 TH/MM3 CBC Comment DIFF FINAL Differential Comment Prothrombin Time 10.8 SEC Prothromb Time International Ratio 1.1 RATIO Activated Partial Thromboplast Time 23.8 SEC D-Dimer Quantitative (PE/DVT) 0.24 MG/L FEU Urine Color YELLOW Urine Turbidity HAZY Urine pH 7.0 Urine Specific [place] 1.026 Urine Protein NEG mg/dL Urine Glucose (UA) NEG mg/dL Urine Ketones NEG mg/dL Urine Occult Blood NEG Urine Nitrite NEG Urine Bilirubin NEG Urine Urobilinogen 4.0 OR GREATER mg/dL Urine Leukocyte Esterase NEG Urine RBC LESS THAN 1 /hpf Urine WBC 2 /hpf Urine Squamous Epithelial Cells 4 /hpf Urine Mucus MOD /lpf Microscopic Urinalysis Comment CULT NOT INDICATED Blood Urea Nitrogen 9 MG/DL Creatinine 0.83 MG/DL Random Glucose 84 MG/DL Total Protein 8.2 GM/DL Albumin 3.7 GM/DL Calcium Level 9.0 MG/DL Alkaline Phosphatase 54 U/L Aspartate Amino Transf (AST/SGOT) 46 U/L Alanine Aminotransferase (ALT/SGPT) 22 U/L Total Bilirubin 0.4 MG/DL Sodium Level 138 MEQ/L Potassium Level 5.7 MEQ/L 4.1 MEQ/L Chloride Level 110 MEQ/L Carbon Dioxide Level 20.7 MEQ/L Anion Gap 7 MEQ/L Estimat Glomerular Filtration Rate 105 ML/MIN Total Creatine Kinase 220 U/L 113 U/L Creatine Kinase MB LESS THAN 0.5 NG/ML LESS THAN 0.5 NG/ML Creatine Kinase MB % 0.2 % Troponin I LESS THAN 0.02 NG/ML LESS THAN 0.02 NG/ML Human Chorionic Gonadotropin, Quant LESS THAN 1 MIU/ML MDM Medical Record Reviewed: Yes Supervised Visit with ELLEN: No Narrative Course During the course of the patient's emergency department visit, the patient's history, examination, and differential diagnosis were reviewed with the patient. The patient was placed on a chimney repairer with oximetry and frequent blood pressure monitoring. The patient had IV access obtained and blood work sent for analysis. The patient's case was checked out to me at the conclusion of Dr. Carcamo's shift. Please see her complete history and physical. The patient presented with chest pain and abdominal pain. The patient was identified on CT scan of the abdomen and pelvis to have a 5.9 cm left breast mass that was stable to slightly increased in size appeared to May 2017. Dr. Carcamo reported that she put in a mandatory consultation with the breast navigator for follow-up as the patient has not followed up regarding this breast mass previously. Dr. Carcamo requested that I review a second set of cardiac enzymes and if they are negative, the patient could be discharged home to follow-up. The patient was initially provided normal saline 1 L IV fluid bolus. The patient's laboratory studies were reviewed and remarkable for 03/10/18 16:18 Total Protein 8.2, Albumin 3.7, Calcium Level 9.0, Alkaline Phosphatase 54, Aspartate Amino Transf (AST/SGOT) 46 H, Alanine Aminotransferase (ALT/SGPT) 22, Total Bilirubin 0.4 Regarding the patient's hyperkalemia at 5.7 a repeat potassium was ordered by Dr. Carcamo which was found to be normal at 4.1. The patient's initial set of cardiac enzymes showed a CPK of 220 with an MB percent of 0.2, troponin I less than 0.02. The patient's hemoglobin is currently 9.1. This is stable compared to prior evidence of anemia in our facility. The patient's second set of cardiac enzymes are within normal limits with a CPK of 113, CK-MB less than 0.5 , troponin I less than 0.02. The patient will be discharged home. Radiology studies were reviewed and remarkable for Last Impressions Abdomen/Pelvis CT 03/10/18 1746 Signed Impressions: CONCLUSION: 1. 5.9 cm left breast mass, stable to slightly increased in size from 2016. This could be further evaluated with mammography and ultrasound. 2. 2.5 cm right adnexal cyst. Small cyst left ovary. Appendix appears normal. Small amount of free fluid in the pelvis. Chest X-Ray 03/10/18 1606 Signed Impressions: CONCLUSION: 1. No acute cardiopulmonary disease. The patient is encouraged again to follow-up regarding her breast mass. Patient was given a mandatory follow-up for consultation through the breast navigator system. The patient is also instructed regarding the importance of following up with her primary care physician. If she does not currently have a primary care physician she will be given information regarding the [facility] for follow-up. She is instructed to follow-up in 2 days for reexamination. The patient is resting comfortably and feels better, is alert and in no distress. The patient's results and examination findings were discussed with the patient. The repeat examination is unremarkable and benign. The history, exam, diagnostic testing, and current condition do not suggest any significant pathology to warrant further testing, continued ED treatment, admission, or surgical evaluation at this point. The vital signs have been stable. The patient does not have uncontrollable pain, intractable vomiting, or other significant symptoms. The patient's condition is stable and appropriate for discharge. The patient will pursue further outpatient evaluation with a primary care physician or other designated or consulting physician as indicated in the discharge instructions. The patient is instructed to report back to the emergency department immediately for reexamination in the mean time if she develops any new or worsening signs or symptoms. The patient expressed understanding and was agreeable with this plan. Diagnosis Primary Impression: Atypical chest pain Additional Impressions: Anemia Qualified Codes: D64.9 - Anemia, unspecified Breast mass in female Referrals: [facility] 2 days General Surgeon Patient Instructions: Anemia (ED), Breast Mass (ED), General Instructions Med/Other Pt SpecificInfo: Prescription(s) given Scripts Ferrous Sulfate (Ferrous Sulfate) 325 Mg (65 Mg Iron) Tablet 325 MG PO BIDPC for Nutritional Supplement, #60 TAB 0 Refills Prov: Ayanna Anglin MD 03/10/18 Disposition: 01 DISCHARGE HOME Condition: Stable Ayanna Anglin MD Mar 10, 2018 19:41
[2018-03-10 20:02] LABS: TROPONIN I LESS THAN 0.02 NG/ML (0.02-0.05)
[2018-03-10] MEDS ORDERED: FERR325T18 PO (20:06)
--- NOTE | 2018-03-11 17:04 | EKG ---
Date Performed: 03/10/2018 Time Performed: 17:07:45 PTAGE: 22 years EKG: Sinus rhythm NORMAL ECG PREVIOUS TRACING 05/29/2017 @ 19.00 Since the previous tracing, no significant change noted DOCTOR: Audrey Ng Interpretating Date/Time 03/11/2018 17:01:46
== END 2018-03-10 22:34 | disposition home or self-care (01) ==
LOC: NEPE 15:28
DX: R07.89 Other chest pain (principal); D64.9 Anemia, unspecified; N63.20 Unspecified lump in the left breast, unspecified quadrant; R10.9 Unspecified abdominal pain; R11.0 Nausea; N83.202 Unspecified ovarian cyst, left side; K21.9 Gastro-esophageal reflux disease without esophagitis; F32.9 Major depressive disorder, single episode, unspecified; F41.9 Anxiety disorder, unspecified; Z79.899 Other long term (current) drug therapy
CPT/HCPCS: 71045; 74177; 80053; 81001; 82550; 82552; 84132; 84484; 84702; 84703; 85025; 85379; 85610; 85730; 93005; 96360; 96361; 99285; J7030; Q9967